=== PATIENT | female | born 1975 | race Caucasian/White ===

== ENCOUNTER 2022-08-11 15:17 | Outpatient (CLI) | payer OTHER, SELFPAY ==
[2022-08-13 17:39] LABS: H pylori, Urea Breath NOT DETECTED (NOT DETECTED)
== END 2022-08-11 15:18 | disposition home or self-care (01) ==
PROVIDERS: PCP Nurse Practitioner Family; Visit Provider Nurse Practitioner Family
DX: R14.2 Eructation (principal); R10.13 Epigastric pain
CPT/HCPCS: 83013

== ENCOUNTER 2025-04-12 11:11 | Emergency (ER) | payer BC, SELFPAY ==
--- OUTSIDE RECORDS SUMMARY | 2024-04-24 11:00 | XMS_ITS ---
Author Organization [facility] Address [address] [address] [place] [address] Care Team Providers Care Muck Farmer Name Role Phone Noemi Ibrahim Unavailable [phone] REASON FOR VISIT Lower abdominal pain, lower back pain, khan when I pee Encounters Encounter Location Date Provider Diagnosis [facility] [place], [place] [address] [place] [address] 04/24/2024 Noemi Ibrahim Plan Of Treatment No Information Progress Notes * CHAU Jo NDOB:[birth year] (49 yo F)Acc No.[id number]:04/24/2024 Progress Note - Acute Patient: Shavonne GARCES Jo Daniel Provider: Gianna Ibrahim MD :1975 A ge:48 Y S ex:Female Date:04/24/2024 External Visit ID:[id number] Address:[address] [facility] [facility] Subjective: * Chief Complaints: * 1 . Lower abdominal pain, lower back pain, kahn when I pee. * Active Problem List E03.9 Acquired hypothyroid ism Modified On:08/15/2023U Status:confirmed F32.89 Other depression Modified On:08/15/2023U Status:confirmed I10 Primary hypertension Modified On:08/15/2023 Status:confirmed J30.2 Seasonal allergies Modified On:08/15/2023 Status:confirmed * Medical History: Objective: * Vitals: Assessment: Plan: * Treatment: * * Electronic signature of Jessa Ibrahim MD on 04/12/2025 at 11:21 AM CDT Sign off status: Pending * Provider: Gianna Ibrahim MD Date: 0 04/24/2024 Generated for Maria Guadalupe ernandez/Akilah/Hadley on: 0 04/12/2025 11:21 AM CDT
--- OUTSIDE RECORDS SUMMARY | 2024-05-14 11:00 | XMS_ITS ---
Author Organization [facility] Address [address] [address] [place] [address] Care Team Providers Care Pile Header Name Role Phone Noemi Ibrahim Unavailable [phone] [place] Unavailable [phone] REASON FOR VISIT Fever, sore throat, kahn when I urinate, lower abdominal pain. Medications Medication SIG (Take, Route, Frequency, Duration) Notes Start Date End Date Status Ondansetron 8 MG 1 tablet on the tong ue and allow to dissolve as needed Orally every 6 hours for 5 days 08/15/2023 Active Pepcid 40 MG 1 tablet at bedtime Orally Once a day for 90 days 08/15/2023 Active Fluticasone Propionate 50 MCG/ACT 1 spray in each nostril Nasally Once a day for 30 08/15/2023 Active Triamcinolone Acetonide 0.1 % 1 application Externally Two times a Week for 90 days 08/15/2023 Active Loratadine 10 MG 1 tablet Orally Once a day for 90 days 08/15/2023 Active Lisinopril 5 MG 1 tablet Orally Once a day for 90 days 08/15/2023 Active Montelukast Sodium 10 MG 1 tablet Orally Once a day for 90 days 08/15/2023 Active buPROPion HCl ER (XL) 150 MG 1 tablet in the morning Orally Once a day for 90 days 08/15/2023 Active Escitalopram Oxalate 20 MG 1 tablet Oral ly Once a day for 90 days 08/15/2023 Active Levothyroxine Sodium 50 MCG 1 tablet in the morning on an empty stomach Orally Once a day for 90 days 08/15/2023 Active Encounters Encounter Location Date Provider Diagnosis [facility] [address] [place] [address] 05/14/2024 Cee Nicholas Plan Of Treatment No Information Progress Notes * Jo RITCHIE NDOB:[birth year] (49 yo F)Acc No.[id number]:05/14/2024 Progress Note - Acute Patient: Jo HAYS N Provider: Alis Nicholas APN :1975 A ge:48 Y S ex:Female Date:05/14/2024 External Visit ID:[id number] Address:[address] [place] [address] [address], [place] [address] Subjective: * Chief Complaints: * 1 . Fever, sore throat, kahn when I urinate, lower abdominal pain.. * Medical History: * Medications: T aking Levothyroxine Sodium 50 MCG Tablet 1 tablet in the morning on an empty stomach Orally Once a day , Taking buPROPion HCl ER (XL) 150 MG Tablet Extended Release 24 Hour 1 tablet in the morning Orally Once a day , Taking Escitalopram Oxalate 20 MG Tablet 1 tablet Orally Once a day , Taking Lisinopril 5 MG Tablet 1 tablet Orally Once a day , Taking Montelukast Sodium 10 MG Tablet 1 tablet Orally Once a day , Taking Ondansetron 8 MG Tablet Disintegrating 1 tablet on the tongue and allow to dissolve as needed Orally every 6 hours , Taking Pepcid 40 MG Tablet 1 tablet at bedtime Orally Once a day , Taking Fluticasone Propionate 50 MCG/ACT Suspension 1 spray in each nostril Nasally Once a day , Taking Triamcinolone Acetonide 0.1 % Cream 1 application Externally Two times a Week , Taking Loratadine 10 MG Tablet 1 tablet Orally Once a day Objective: * Vitals: Assessment: Plan: * Treatment: * * Electronic signature of Alexandria Nicholas APN on 04/12/2025 at 11:20 AM CDT Sign off status: Pending * Provider: Alis Nicholas APN Date: Generated for Maria Guadalupe ernandez/Akilah/Hadley on: 0 04/12/2025 11:20 AM CDT
--- OUTSIDE RECORDS SUMMARY | 2025-04-12 11:21 | XMS_ITS | Encounter Summary ---
Author Organization [facility] Address [address] [place] [address] Care Team Providers Care Header Dock Name Role Phone Noel Perez MD Primary Care Provider [phone] Encounter Details Date Type Department Care Team (Late st Contact Info) Description 06/25/2004 Outpatient Historical [facility] M[facility] and [place] [address] [place] [address] Wm Dotson MD [address] [facility] [address] [place] [address] Social History Tobacco Use Types Packs/Day Years Used Date Smoking Tobacco: Never Assessed Comments Unknown Sex and Gender Information Value Date Recorded Sex Assigned at Not on file Legal 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
--- OUTSIDE RECORDS SUMMARY | 2025-04-12 11:21 | XMS_ITS | Clinical Summary ---
Author Organization [facility] Address [address] [place] [address] Phone Care Team Providers Care Metal Container Maker Name Role Phone Eloise Pruitt APRN, SOLICITOR PATENT Primary Care Provide r Sergio [place] MD Unavailable [phone] Allergies Active Allergy Reactions Criticality Noted Date Comments Atorvastatin Other (see Comments) Low 10/21/2020 Dexlansoprazole Other (see Comments),Shortness of Breath,Unknown High 01/17/2019 Doxycycline Hives,Itching Low 08/20/2018 Fluticasone-Salmeterol Palpitations Low 05/27/2022 Levofloxacin Shortness of Breath High 01/17/2019 Mometasone Furo-Formoterol Fum Other (see Comments) High 01/17/2019 Pravastatin Other (see Comments) Low 10/21/2020 Rosuvastatin Other (see Comments) Low 01/07/2021 Sulfamethoxazole Rash Low 08/09/2022 Sulfamethoxazole-Trimethoprim Rash Medium 2019 Medications ALPRAZolam (XANAX) 0.5 MG Tablet Take 0.5 mg by mouth. 3 Active cetirizine (ZyrTEC) 10 MG Tablet Take 10 mg by mouth. Active Desogestrel-Eth inyl Estradiol 0.15-30 MG-MCG Tablet TAKE 1 ACTIVE TABLET DAILY, SKIPPING PLACEBO TABLETS 8 Active docusate sodium (COLACE) 100 MG Capsule TAKE 1 CAPSULE BY MOUTH TWICE A DAY NEEDED FOR CONSTIPATION 4 Active EPINEPHrine (EPIPEN) 0.3 MG/0.3ML Solution Auto-injector 0.3 mg by Intramuscular route. 3 Active escitalopram (LEXAPRO) 20 MG Tablet Take 10 mg by mouth daily. 3 Active esomeprazole (NexIUM) 40 MG CAPSULE DELAYED RELEASE Take 40 mg by mouth. Active famotidine (PEPCID) 40 MG Tablet Take 40 mg by mouth. 3 Active fluticasone (FLONASE) 50 MCG/ACT Suspension 1 [place] by Nasal route. 2 Active levothyroxine (SYNTHROID) 50 MCG Tablet Take 50 mcg by mouth daily. 3 Active lisinopril (PRINIVIL, ZESTRIL) 5 MG Tablet Take 5 mg by mouth daily. 3 Active montelukast (SINGULAIR) 10 MG Tablet 1 tab(s) orally 30 minutes prior to allergy shots for 30 days Active ondansetron (ZOFRAN-ODT) 4 MG TABLET DISPERSIBLE Take 4 mg by mouth. 3 Active triamcinolone (KENALOG) 0.1 % Cream every 8 (eight) hours. Active valACYclovir (VALTREX) 1 GM Tablet Take 2 tablet (2000 mg total) by mouth every 12 hours x 1 day PRN. Take at the first sign of cold sore. 2 Active ergocalciferol (VITAMIN D) 79470 UNIT Capsule Take 1.25 mg by mouth once a week. 4 Active Ferrous Sulfate (Iron) 325 (65 Fe) MG Tablet Take by mouth. A ctive Multiple Vitamin (MULTI-VITAMIN DAILY PO) Take by mouth. Vitafusion gummie Active Cyanocobalamin (B-12 PO) Take 1,000 mcg by mouth. Active Lactobacillus (PROBIOTIC ACIDOPHILUS PO) Take by mouth. Roland multi strain vaginal probiotic Active Azelastine HCl 137 MCG/SPRAY Solution SPRAY 2 SPRAYS INTO EACH NOSTRIL TWICE A DAY FOR 30 DAYS 4 Active albuterol 108 (90 Base) MCG/ACT Aerosol Solution take 2 Puffs by inhalation. 03/20/202 4 Active budesonide-form oterol fumarate (SYMBICORT) 80-4.5 MCG/ACT Aerosol take 2 Puffs by inhalation. 4 Active buPROPion (WELLBUTRIN) 150 MG XL tablet Take 1 Tablet by mouth daily. 3 Active amoxicillin-cla vulanate (AUGMENTIN) 875-125 MG Tablet Take 1 Tablet by mouth 2 times daily. Active Active Problems Problem Noted Date Diagnosed Date Iron deficiency anemia 09/12/2024 Encounters Date Type Department Care Team Description 01/23/2025 1:15 PM CDT Office Visit [facility] [address] [address] Sergio Colorado MD Iron deficiency anemia secondary to inadequate dietary iron intake (Primary Dx) 01/23/2025 Travel from Last 3 Months Social History Tobacco Use Types Packs/Day Years Used Date Smoking Tobacco: Never Smokeless Tobacco: Never Tobacco Cessation:Counseling Given: Not Answered Alcohol Use Standard Drinks/Week Comments Yes 2 (1 standard drink = 0.6 oz pur e alcohol) 4 times a year Comments Unknown Sex and Gender Information Value Date Recorded Sex Assigned at Not on file 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 Gender Identity Not on file Sexual Orientation Not on file Last Filed Vital Signs Vital Sign Reading Time Taken Comments Blood Pressure 138/84 01/23/2025 1:32 PM CDT Pulse 83 01/23/2025 1:32 PM CDT Temperature 36.9 C (98.5 F) 01/23/2025 1:32 PM CDT Respiratory Rate 18 01/23/2025 1:32 PM CDT Oxygen Saturation 99% 01/23/2025 1:32 PM CDT Inhaled Oxygen Concentration - - Weight 66.6 kg (146 lb 12.8 oz) 01/23/2025 1:32 PM CDT Height 157.5 cm (5' 2) 01/23/2025 1:32 PM CDT Body Mass Index 26.85 01/23/2025 1:32 PM CDT Plan of Treatment Upcoming Encounters Date Type Department Care Team (Late st Contact Info) Description 05/29/2025 1:45 PM CDT Office Visit [facility] [address] [place] [address] Sergio Colorado MD [address] [place] [address] Health Maintenance Due Date Last Done Comments Hepatitis C Virus (HCV) Screening 1975 Pap Smear 1995 Cervical Cancer Screening (CCS) 2004 HPV/Cotest 2004 Cologuard 2019 Immunochemical Fecal Occult Blood 2019 SARS-COV-2 Immunization ( season) 2024 08/12/2021, 10/16/2020, 09/18/2020 Zoster Immunization (1 of 2) 2024 Influenza Immunization (#1) 04/14/202505/14, 05/25/2023, 10/17/2022, Additional history exists Mammogram 11/06/2025 11/06/2024, 10/12, 10/28/2024, Additional history exists Colonoscopy 11/29/2032 11/29/2022 Colorectal Cancer Screening 11/29/2032 Respiratory Syncytial Virus (RSV) Immunization (Adult) (1 - 1-dose 75+ series) 2049 DTaP/Tdap/Td Immunization Discontinued 08/19/2023, TdaP Immunization Completed 08/19/2023, 05/09/2014 Hepatitis B Immunization Completed 024, 07/24/2017, 03/20/2017, Additional history exists Pneumococcal Immunization (50+ years) Completed 03/15/2024, 01/16/2023, 03/08/2021 Pneumococcal Immunization Combined Discontinued 03/15/2024, 01/16/2023, 03/08/2021 Discussion re Starting/Frequency of Mammograms Discontinued 10/28/2024, 09/13/2022, 06/22/2017, Additional history exists Human Papillomavirus (HPV) Immunization Aged Out No longer eligible based on patient's age to complete this topic Meningococcal Immunization (ACWY) Aged Out No longer eligible based on patient's age to complete this topic Rotavirus Immunization Aged Out No lo nger eligible based on patient's age to complete this topic Insurance [facility] Care Teams Metal Container Maker Relationship Specialty Start Date End Date Eloise Pruitt, CORPORATE MEETING PLANNER, SOLICITOR PATENT PCP - General Advanced Practice Nurse 10/03/23 Sergio Colorado MD Consulting Physician Oncology 10/03/23
--- OUTSIDE RECORDS SUMMARY | 2025-04-12 11:21 | XMS_ITS | Encounter Summary ---
Author Organization [facility] Address 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
--- OUTSIDE RECORDS SUMMARY | 2025-04-12 11:21 | XMS_ITS | Encounter Summary ---
Author Organization [facility] Address 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
--- OUTSIDE RECORDS SUMMARY | 2025-04-12 11:21 | XMS_ITS | Clinical Summary ---
Author Organization [facility] Address [address] [place] [address] Phone Care Team Providers Care Plastic Boat Buffer Name Role Phone Noel Perez MD Primary Care Provider [phone] Allergies Active Allergy Reactions Criticality Noted Date Comments Atorvastatin Muscle Pain,Other (S ee Comments) Low 10/21/2020 Cat Dander Itching,Unknown Low 02/17/2025 Clarithromycin Anaphylaxis High 02/17/2025 Clobetasol Anaphylaxis High 03/23/2025 Dexlansoprazole Other (See Comments),Shortness of Breath/Wheezing,Unknown High 01/17/2019 Doxycycline Hives,Itching,Anaphylaxis High 9 Ezetimibe Unknown 10/28/2024 Fluticasone Propion-Salmeterol Palpitations Low 05/27/2022 Latex Rash Low 02/17/2025 Levofloxacin Other (See Comments),Shortness of Breath/Wheezing High 01/17/2019 Mold Shortness of Breath/Wheezing High 02/17/2025 Mometasone-Formoterol Other (See Comments),Dizziness High 01/17/2019 Pravastatin Muscle Pain,Other (S ee Comments) Low 10/21/2020 Rosuvastatin Muscle Pain,Other (S ee Comments) Low 01/07/2021 Sulfa (Sulfonamide Antibiotics) Hives,Rash High 08/09/2022 Sulfamethoxazole-Trimethopri m Rash,Other (See Comments) Medium 10/13/2019 Tree Nut Anaphylaxis High 03/23/2025 Medications ALBUTEROL SULFATE (VENTOLIN HFA INHALATION)Indicat ions:Screening for malignant neoplasm of the cervix,Routine gynecological examination Take by inhalation. Active lisinopril (PRINIVIL) 10 mg tablet Take 10 mg by mouth daily. Active levothyroxine 50 mcg tablet 6 Active valACYclovir (VALTREX) 500 mg tablet TAKE 1 TABLET BY MOUTH TWICE A DAY. 30 Tablet 11 7 Active APRI 0.15-0.03 mg Tablet TAKE 1 ACTIVE TABLET DAILY, SKIPPING PLACEBO TABLETS 84 Tablet 8 Active solifenacin (VESICARE) 10 mg Tablet Take 10 mg by mouth daily. Active fluconazole (DIFLUCAN) 150 mg tablet Take 1 Tablet (150 mg) by mouth every third day for 2 doses. 2 Tablet 5 03/27/20 25 amoxicillin (AMOXIL) 500 mg Tablet Take 1 Tablet (500 mg) by mouth every 12 hours for 5 days. 10 Tablet 5 03/30/20 25 Active Problems No known active problems Encounters Date Type Department Care Team Description 03/25/2025 Telephone [facility] [address] [phone] Shelby Malone NP Abnormal Lab Results 03/24/2025 Results Follow-Up [facility] [address] [address] Janae Lui, ROMEL VAGINOSIS/VAGINITIS PANEL PLUS, POC URINALYSIS DIPSTICK AUTOMATED, POC , URINE, URINE CULTURE 03/23/2025 1:45 PM CDT Office Visit [facility] [address] [phone] [facility] Shelby Malone, YESI Vaginal yeast infection (Primary Dx) 03/18/2025 External Device Data STL ABSTRACTION Provider, Abstract 02/26/2025 External Device Data STL ABSTRACTION Provider, Abstract 02/25/2025 External Device Data STL ABSTRACTION Provider, Abstract 01/28/2025 External Device Data STL ABSTRACTION Provider, Abstract 01/14/2025 External Device Data STL ABSTRACTION Provider, Abstract from Last 3 Months Family History Medical History Relation Name Comments Heart Disease Father Cancer Maternal Grandmother cervica l Cancer Mother Diabetes Mother Heart Disease Mother Other Mother Healthy Son Breast Cancer Neg Hx Relation Name Status Comments Father Maternal Grandmother Mother Alive Son Alive Social History Tobacco Use Types Packs/Day Years Used Date Smoking Tobacco: Never Smokeless Tobacco: Never Tobacco Cessation:Counseling Given: Not Answered Alcohol Use Standard Drinks/Week Comments No 0 (1 standard drink = 0.6 oz pur e alcohol) Comments No Sex and Gender Information Value Date Recorded Sex Assigned at Not on file Legal Sex Female 5:16 AM VISUAL ASSOCIATE Gender Identity Not on file Sexual Orientation Not on file Occupation Industry Job Start Date Job End Date Not on file Not on file Not on file Not on file Last Filed Vital Signs Vital Sign Reading Time Taken Comments Blood Pressure 130/83 03/23/2025 11:59 AM CDT Pulse 78 03/23/2025 11:59 AM CDT Temperature 36.8 C (98.3 F) 03/23/2025 11:59 AM CDT Respiratory Rate 16 03/23/2025 11:59 AM CDT Oxygen Saturation 97% 03/23/2025 11:59 AM CDT Inhaled Oxygen Concentration - - Weight 62.1 kg (137 lb) 03/23/2025 11:59 AM CDT Height 157.5 cm (5' 2) 03/23/2025 11:59 AM CDT Body Mass Index 25.06 03/23/2025 11:59 AM CDT Plan of Treatment Health Maintenance Due Date Last Done Comments Pre-Diabetes and Diabetes Screening 1975 CERVICAL CANCER SCREENING 06/22/2018 PAP SMEAR 06/22/2018 06/22/2017, 10/12, 08/02/2013, Additional history exists FIT-DNA Q 3 years 2019 FIT/FOBT Q 1 year 2019 Flex Sig/CT Colonography Q 5 years 2019 HPV/Cotest (21-29) 06/22/2022 06/22/2017, 0 10/28/2014, 08/02/2013, Additional history exists HPV/Cotest (30-65) 06/22/2022 06/22/2017, 0 10/28/2014, 08/02/2013, Additional history exists COVID-19 Vaccine (2023-2 5 season) 2024 08/12/2021, 10/16/2020, 09/18/2020 ZOSTER VACCINE (1 of 2) 2024 INFLUENZA VACCINE (#1) 2025 05/25/2024, 2014 BREAST CANCER SCREENING 11/06/2025 11/07/19, 11/06/2024, 10/28/2024, Additional history exists COLORECTAL SCREENING 11/29/2032 11/29/2022 Colorectal Cancer Screening 11/29/2032 DTAP/TDAP/TD VACCINES (3 - T d or Tdap) 08/19/2033 08/19/2023, 05/09/2014 HEPATITIS B VACCINES Completed 07/24/2017, 03/20/2017, 01/18/2017 Procedures Procedure Name Priority Date/Time Associated Diagnosis Comments POC URINALYSIS DIPSTICK AUTOMATED Routine 03/23/2025 12:41 PM CDT Vaginal yeast infection POC , URINE Routine 03/23/2025 12:34 PM CDT Vaginal yeast infection URINE CULTURE Routine 03/23/2025 12:12 PM CDT Vaginal yeast infection VAGINOSIS/VAGINITIS PANEL PLUS Routine 03/23/2025 12:12 PM CDT Vaginal yeast infection MAMMO SCREEN BILAT W OR WO CAD Routine 06/22/2017 11:53 AM VISUAL ASSOCIATE Visit for screening mammogram CERV/VAG CYTOPATH, THIN PREP AND HPV W/RFLX GENOTYPES 16, 18/45 Routine 06/22/2017 10:16 AM VISUAL ASSOCIATE Well woman exam with routine gynecological exam Routine cervical smear Special screening examination for human papillomavirus (HPV) from Last 3 Months or Most Recently Relevant to Health Maintenance Results * POC URINALYSIS DIPSTICK AUTOMATED (03/23/2025 12:41 PM CDT) COLOR UA POC Yellow Pale to Dark Yellow [facility] CLARITY UA POC Clear Clear, Other [facility] GLUCOSE UA POC Negative Negative, Normal [facility] BILIRUBIN UA POC Negative Negative [facility] KETONES UA POC Negative Negative [facility] SPECIFIC GRAVITY UA POC 1.010 1.000 - 1.[address] [address] [facility] BLOOD UA POC Negative Negative CHARLES [facility] PH UA POC 6.5 5.0 - 8.0 CHARLES PROCTOR ALTH [facility] PROTEIN UA POC Negative Negative [facility] UROBILINOGEN UA POC 0.2 <2.0 mg/dL [facility] NITRITE UA POC Negative Negative [facility] LEUKOCYTE ESTERASE UA POC Negative Negative [facility] KIT LOT NUMBER POC [id number] [facility] KIT EXP DATE POC 07/10/[address] [facility] Urine 03/23/2025 12:4 1 PM CDT us Shelby Malone CAR SALES ASSOCIATE POINT OF CARE TESTING Final R esult [facility] CLIA# [id number] [place] [address] * POC , URINE (03/23/2025 12:34 PM CDT) HCG QUAL URINE POC Negative Negative, Indeterminate [facility] INTERNAL KIT QC POC Pass Pass [facility] KIT LOT NUMBER POC [id number] [facility] KIT EXP DATE POC 07/10/2026 [facility] Urine 03/23/2025 12:3 4 PM CDT us Shelby Malone CAR SALES ASSOCIATE POINT OF CARE TESTING Final R esult [facility] CLIA# [id number] [place] [address] * VAGINOSIS/VAGINITIS PANEL PLUS (03/23/2025 12:12 PM CDT) BACTERIAL VAGINOSIS NEGATIVE NEGATIVE [facility] DANNA SPECIES NOT DETECTED NOT DETECTED [facility] DANNA GLABRATA NOT DETECTED NOT DETECTED [facility] Comment: Danna species C. albicans, C. tropicalis, C. parapsilosis, and/or C. dubliniensis can be detected, but not differentiated, in the Danna spp. result. TRICHOMONAS VAGINALIS (TV), TMA NOT DETECTED NOT DETECTED [facility] CHLAMYDIA TRACHOMATIS RNA, TMA, UROGENITAL NOT DETECTED NOT DETECTED [facility] NEISSERIA GONORRHOEAE RNA, TMA, UROGENITAL NOT DETECTED NOT DETECTED [facility] Comment: For additional information, please refer to https://education.Booking Angel/faq/RCV082 (This link is being provided for information/ educational purposes only.) Test Performed at: [facility] [address] [place] [address] Jose M Choe MD Genital SPECIMEN FROM VAGINA / Unknown 03/23/2025 12:12 PM CDT 03/24/2025 6:04 AM CDT Shelby Malone NP MICROBIOLOGY - GENERAL ORDERA BLES Final Result [facility] [phone] [facility] [address] [place] [address] * (ABNORMAL) URINE CULTURE (03/23/2025 12:12 PM CDT) Pathologist [facility] URINE CULTURE SEE NOTE(A) [facility]Percy Fallon Comment: CULTURE, URINE, ROUTINE Micro Number: [id number] Test Status: Final Specimen Source: Urine, clean catch Specimen Quality: Adequate Result: Greater than 100,000 CFU/mL of Group B Streptococcus isolated Beta-hemolytic streptococci are predictably susceptible to Penicillin and other beta-lactams. Susceptibility testing not routinely performed. Please contact the laboratory within 3 days if susceptibility testing is desired. Comment: Erythromycin and clindamycin are not recommended for treatment of urinary tract infections, but clindamycin may be useful for treatment of rectovaginal colonization or infection. Any amount of group B Streptococcus in urine specimens obtained from females is a marker of genital tract colonization. If this patient is , please refer to ACOG guidelines for appropriate screening and management of women. COMMENT: Additional non-predominating organism(s) isolated. These organisms, commonly found on external and internal genitalia, are considered colonizers. No further testing performed. Test Performed at: [facility] [place] [address] [place] [address] [facility] Urine URINE SPECIMEN OBTAINED BY CLEAN CATCH PROCEDURE / Unknown 03/23/2025 12:12 PM CDT 03/23/2025 10:58 PM CDT Shelby Malone NP MICROBIOLOGY - GENERAL ORDERA BLES Final Result [facility] [phone] [place] [address] [place] [address] * MAMMO SCREEN BILAT W OR WO CAD (06/22/2017 11:53 AM VISUAL ASSOCIATE) Anatomical Region Laterality Modality Breast Bilateral Mammography Narrative 06/22/2017 2:08 PM VISUAL ASSOCIATE Bilateral digital screening mammogram with computer assisted diagnosis History: Annual screening exam. Findings: A bilateral screening mammogram was performed. Comparison is made to : 03/25/2016, 10/28/2014, and 08/02/2013 There are scattered fibroglandular densities. No new masses, suspicious calcifications, or areas of asymmetry or distortion are identified. CAD was utilized. Impression: Negative screening mammogram. Recommendation: Routine annual follow-up Overall Assessment: Birads Category 1: Negative Anushka Saez NP MAMMO ORDERABLES Final Resu lt * CERV/VAG CYTOPATH, THIN PREP AND HPV W/RFLX GENOTYPES 16, 18/45 (CP) (06/22/2017 10:16 AM VISUAL ASSOCIATE) CLINICAL INFORMATION SEE COMMENT 06/29/2017 11:50 AM VISUAL ASSOCIATE [facility] Comment:Information not prov ided LAST MENSTRUAL PERIOD SEE COMMENT 06/29/2017 11:50 AM VISUAL ASSOCIATE [facility] Comment:INFORMATION NOT PROV IDED PREV PAP: NIL 06/29/2017 11:50 AM VISUAL ASSOCIATE [facility] PREV BX: SEE COMMENT 06/29/2017 11:50 AM VISUAL ASSOCIATE [facility] Comment:INFORMATION NOT PROV IDED SOURCE Endocervix 06/29/2017 11:50 AM VISUAL ASSOCIATE [facility] ADEQUACY: SEE COMMENT 06/29/2017 11:50 AM VISUAL ASSOCIATE [facility] Comment: Satisfactory for evaluation. Endocervical/transformation zone component present. Age and/or menstrual status not provided PAP INTERP SEE COMMENT 06/29/2017 11:50 AM VISUAL ASSOCIATE [facility] Comment:Negative for intraep ithelial lesion or malignancy. COMMENT SEE COMMENT 06/29/2017 11:50 AM VISUAL ASSOCIATE [facility] Comment: This Pap test has been evaluated with computer assisted technology. LIVESTOCK PRODUCER: SEE COMMENT 2016 11:50 AM VISUAL ASSOCIATE [facility] Comment: BES, CT(ASCP) CT screening location: [place] [address] [address] [place] [address] HPV E6/E7 Not Detected Not Detected 06/29/2017 11:50 AM VISUAL ASSOCIATE [facility] Comment: This test was performed using the APTIMA HPV Assay ([employer] This assay detects E6/E7 viral messenger RNA (mRNA) from 14 high-risk HPV types (16,18,31,33,35,39,45,51,52,56,58,59,66,68). Genital SWAB OF ENDOCERVIX / Unknown Collection / Unknown 06/22/2017 10:16 AM VISUAL ASSOCIATE 06/22/2017 12:42 PM VISUAL ASSOCIATE Narrative [facility] - 06/29/2017 11:50 AM VISUAL ASSOCIATE Performing Organization Information: Site ID: Name: [facility] Address: [facility] [place] [address] Director: Jose M Choe MD us Anushka Saez NP PATHOLOGY/CYTOLOGY ORDERABL ES Final Result [facility] from Last 3 Months or Most Recently Relevant to Health Maintenance Insurance [facility] BLUE ACCESS CHOICE RX [employer] Care Teams Plastic Boat Buffer Relationship Specialty Start Date End Date Noel Perez MD [address] [place] [address] [address] [place] [id number] PCP - General Internal Medicine 06/06/12
--- OUTSIDE RECORDS SUMMARY | 2025-04-12 11:21 | XMS_ITS | Clinical Summary ---
Author Organization [facility] Address [address] [place] [address] Care Team Providers Care Certified Control Systems Technician Name Role Phone Sinai Mcgregor MD Primary Care Provider [phone] Source Comments [facility],non-owned Affiliates and Associated Physician Practices is amultiple site organization consisting of ambulatory clinics and hospital sitesin [place], [place], [place] and [place]. This disclosure is being madepursuant to the Care Everywhere program and may not contain all information available regarding this patient. Last updated 18.[facility] [employer] Allergies Active Allergy Reactions Criticality Noted Date Comments Advair Diskus Palpitations 04/11/2023 Atorvastatin Myalgias 04/11/2023 Dexlansoprazole Shortness of Breath High 04/11/2023 Doxycycline Itching 04/11/2023 Dulera Dizziness 04/11/2023 Levofloxacin Shortness of Breath High 04/11/2023 Pravastatin Myalgias 04/11/2023 Rosuvastatin Myalgias 04/11/2023 Sulfamethoxazole W-Trimethoprim Rash Medium 03/15 Medications * Be aware that medications may not be up to date on this document. Alwaysverify current medications with the patient. Fluticasone Propionate (Xhance) 93 MCG/ACT EXHU [place] 2 sprays into the nose 2 times daily Active amoxicillin (Amoxil) 875 MG tablet Take 1 (one) tablet by mouth every 12 hours Active desogestrel-eth inyl estradiol (Apri) 0.15-30 MG-MCG tablet Take 1 (one) tablet by mouth once daily Has stopped taking 11/2024 Active Docusate Sodium (DSS) 100 MG Take 1 capsule by mouth as needed 4 Active EPINEPHrine (Auvi-Q) 0.3 MG/0.3ML auto-injector pen Inject 0.3 mL into muscle once as needed Active levothyroxine (Synthroid) 50 MCG tablet Take 1 (one) tablet by mouth once daily 3 Active buPROPion XL 24hr (Wellbutrin-XL) 150 MG tablet Take 1 (one) tablet by mouth once daily 3 Active lisinopril (Prinivil; Zestril) 5 MG tablet Take 1 (one) tablet by mouth once daily 3 Active meclizine (Antivert) 12.5 MG tablet Take 1 (one) tablet by mouth 3 times daily as needed 5 Active ALPRAZolam (Xanax) 0.5 MG tablet Take 1 (one) tablet by mouth every 8 hours as needed 4 Active predniSONE (Deltasone) 20 MG tablet Take 1 (one) tablet by mouth once 5 Active ferrous sulfate 325 (65 FE) MG tablet Take 1 (one) tablet by mouth once daily Active cetirizine (ZyrTEC) 10 MG tablet Take 1 (one) tablet by mouth once daily Active triamcinolone acetonide (Kenalog) 0.1 % cream Apply to affected area every 8 hours 4 Active budesonide-form oterol (Symbicort) 80-4.5 MCG/ACT inhaler Inhale 2 (two) puffs by mouth 2 times daily 4 Active Other Inhale by mouth as needed Active nystatin/triamc inolone (Mycolog) 238209-3.1 UNIT/GM-% ointmentIndicat ions:Lichen sclerosus Use to vulvar skin twice a week 30 g 1 5 Active albuterol HFA (Proventil; Ventolin; Proair) 108 (90 Base) MCG/ACT inhaler INHALE 2 PUFFS INTO THE LUNGS EVERY 6 HOURS NEEDED FOR WHEEZE Active baclofen (Lioresal) 10 MG tablet Take 1 (one) tablet by mouth 2 times daily as needed 5 Active Bempedoic Acid (Nexletol) 180 MG TABS Take 180 mg by mouth once daily 5 Active budesonide (Pulmicort) 1 MG/2ML nebulizer suspension EMPTY ONE VIAL INTO IDS, ADD SALINE PACKET AND DISTILLED WATER, THEN IRRIGATE ONCE DAILY 5 Active Active Problems Problem Noted Date Diagnosed Date Depression 12/18/2024 Iron deficiency anemia 09/12/2024 Dysphagia 08/09/2024 Vitamin D deficiency 09/03/2023 Allergic rhinitis due to animal hair and dander 08/11/2022 Allergic rhinitis due to pollen 08/11/2022 Chronic allergic conjunctivitis 08/11/2022 Chronic cough 08/11/2022 Gastro-esophageal reflux disease without esophag itis 08/11/2022 Hypertrophy of nasal turbinates 08/11/2022 Fatigue 05/16/2022 Vertigo 06/29/2021 Seasonal allergies 04/15/2020 Overview (12/18/2024): Mold Anxiety disorder 05/14/2019 Chronic rhinitis 09/28/2018 Dyslipidemia 08/21/2018 Herpes labialis 08/21/2018 Moderate episode of recurrent major depressive d isorder 08/21/2018 Moderate persistent asthma without complication 08/21/2018 Other specified hypothyroidism 08/21/2018 Primary hypertension 08/21/2018 Resolved Problems Problem Noted Date Diagnosed Date Resolved Date Constipation 11/02/2022 01/15/2025 Overview (12/18/2024): Added automatically from request for surgery [id number] Encounters Date Type Department Care Team Description 03/20/2025 2:00 PM CDT [facility] - BOOK STORE ASSOCIATE [address] [place] [phone] Charissa Nielsen, LOSS PREVENTION RESEARCH ENGINEER-LECTURER IN COMPUTER SCIENCE Lichen sclerosus (Primary Dx); PFD (pelvic floor dysfunction); Danna glabrata infection 03/20/2025 Travel from Last 3 Months Family History Medical History Relation Name Comments Asthma Brother 1 CAD (Coronary Artery Disease) Brother 1 Hyperlipidemia Brother 1 Depression Brother 3 CAD (Coronary Artery Disease) Brother 4 Asthma Father Hyperlipidemia Father Anxiety Disorder Maternal Grandmother Cancer Maternal Grandmother Cancer - Other Maternal Grandmother vulva r cancer Anxiety Disorder Mother Asthma Mother Cancer - Other Mother vulvar Depression Mother Diabetes - Type 2 Mother Hyperlipidemia Mother Thyroid Disease Mother Anxiety Disorder Sister Hypertension Sister Relation Name Status Comments Brother 1 Alive Brother 2 Alive Brother 3 Brother 4 Brother 5 Father Maternal Grandfather Maternal Grandmother Mother Paternal Grandfather Paternal Grandmother Sister Alive Social History Tobacco Use Types Packs/Day Years Used Date Smoking Tobacco: Never Smokeless Tobacco: Never Tobacco Cessation:Counseling Given: Not Answered Alcohol Use Standard Drinks/Week Comments Yes 0 (1 standard drink = 0.6 oz pur e alcohol) 4 times yearly PHQ-2 Answer Date Recorded Patient Health Questionnaire-2 Score 1 12/18/2024 Comments No Sex and Gender Information Value Date Recorded Sex Assigned at Not on file Legal Sex Female 4:27 AM CORRECTIONAL OFFICER CAPTAIN Gender Identity Not on file Sexual Orientation Not on file Last Filed Vital Signs Vital Sign Reading Time Taken Comments Blood Pressure 120/76 03/20/2025 2:06 PM CDT Pulse 112 12/18/2024 8:55 AM CDT Temperature 37.1 C (98.7 F) 04/11/2023 8:32 AM CDT Respiratory Rate 16 04/11/2023 8:32 AM CDT Oxygen Saturation 95% 12/18/2024 8:55 AM CDT Inhaled Oxygen Concentration - - Weight 64.7 kg (142 lb 9.6 oz) 03/20/2025 2:06 P M CDT Height 157.5 cm (5' 2) 03/20/2025 2:06 PM CDT Body Mass Index 26.08 03/20/2025 2:06 PM CDT Plan of Treatment Upcoming Encounters Date Type Department Care Team (Late st Contact Info) Description 09/29/2025 2:00 PM CORRECTIONAL OFFICER CAPTAIN Office Visit [facility] - BOOK STORE ASSOCIATE [address] [place] [address] Charissa Nielsen, LOSS PREVENTION RESEARCH ENGINEER-LECTURER IN COMPUTER SCIENCE [address] [address] Health Maintenance Due Date Last Done Comments COLOGUARD (AGES 45-75) - COLON CA SCREENING 1974 CT COLONOGRAPHY - COLON CA SCREENING 1974 FIT - COLON CA SCREENING 1974 FLEX SIG - COLON CA SCREENING 1974 HIV SCREENING 1989 DTAP/TDAP/TD VACCINES (1 - Tdap) 1993 HEPATITIS B VACCINE (1 of 3 - 19+ 3-dose series) 1993 PNEUMOCOCCAL VACCINE 50+ (1 of 2 - PCV) 1993 PAP SMEAR 06/22/2020 06/22/2017 COVID-19 VACCINE ( - season) 2024 08/12/2021, 10/16/2020, 09/18/2020 ZOSTER VACCINE (1 of 2) 2024 SCREENING FOR DIABETES 12/18/2024 INFLUENZA VACCINE (#1) 2025 , 05/25/2023, 10/17/2022, Additional history exists MAMMOGRAM 11/06/2026 11/06/2024, 10/12, 10/28/2024, Additional history exists LIPID TESTING 02/20/2030 02/20/2025, 01/13, 02/04/2025 COLON MONITORING 11/29/2032 11/29/2022 COLONOSCOPY - COLON CA SCREENING 11/29/2032 11/29/2022 Colorectal Cancer Screening 11/29/2032 HEPATITIS C SCREENING Completed 08/03/2017 DEPRESSION SCREENING Completed 12/18/2024 HIB VACCINE Aged Out No longer eligi ble based on patient's age to complete this topic HPV VACCINE Aged Out No longer eligi ble based on patient's age to complete this topic MENINGOCOCCAL (Group B) VACCINE SHARED DECISION-MAKING Aged Out No longer eligible based on patient's age to complete this topic MENINGOCOCCAL GROUPS A/C/Y/W VACCINE Aged Out No longer eligible based on patient's age to complete this topic Insurance [facility] THIRD CONSTITUTION PARTY LIABILITY [employer] Liability Care Teams Certified Control Systems Technician Relationship Specialty Start Date End Date Sinai Mcgregor MD [address] [place] [address] PCP - General Internal Medicine 03/20/25
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
--- OUTSIDE RECORDS SUMMARY | 2025-04-12 11:21 | XMS_ITS | Encounter Summary ---
Author Organization [facility] Address [address] [place] [address] Care Team Providers Care Design Studio Consultant Name Role Phone Noel Perez MD Primary Care Provider [phone] Encounter Details Date Type Department Care Team (Late st Contact Info) Description 11/19/1999 Outpatient Historical [facility] Deborah Hamm Social History Tobacco Use Types Packs/Day Years Used Date Smoking Tobacco: Never Assessed Comments Unknown Sex and Gender Information Value Date Recorded Sex Assigned at Not on file Legal Sex Female 5:16 AM MEDICAL ASST Gender Identity Not on file Sexual Orientation Not on file documented as of this encounter Plan of Treatment Not on file documented as of this encounter Visit Diagnoses Not on filedocumented in this encounter Care Teams Design Studio Consultant Relationship Specialty Start Date End Date Noel Perez MD [address] [place] [address] [address] [place] [address] PCP - General Internal Medicine 06/06/12 documented as of this encounter
--- OUTSIDE RECORDS SUMMARY | 2025-04-12 11:21 | XMS_ITS | Encounter Summary ---
Author Organization [facility] Address [address] [place] [address] Care Team Providers Care Bonding Molder Name Role Phone Noel Perez MD Primary Care Provider [phone] Encounter Details Date Type Department Care Team (Latest Contact Info) Description 05/04/2004 Outpatient Historical [facility] Radha Rob MD [address] [place] [id number] ABNORM NOS-ANTEPAR (Primary Dx) Social History Tobacco Use Types Packs/Day Years Used Date Smoking Tobacco: Never Assessed Comments Unknown Sex and Gender Information Value Date Recorded Sex Assigned at Not on file Legal Sex Female 5:16 AM SPARE HAND Gender Identity Not on file Sexual Orientation Not on file documented as of this encounter Plan of Treatment Not on file documented as of this encounter Visit Diagnoses Diagnosis Unspecified abnormality affecting management of mother, antepartum condition or complication- Primary documented in this encounter Care Teams Bonding Molder Relationship Specialty Start Date End Date Noel Perez MD [address] [place] [address] [address] [place] [id number] PCP - General Internal Medicine 06/06/12 documented as of this encounter
--- OUTSIDE RECORDS SUMMARY | 2025-04-12 11:21 | XMS_ITS | Patient Health Record ---
Author Organization [facility] [place] ([address]) Address [address] [place] [address] Care Team Providers Care Associate Director Of Sales Name Role Phone Eloise Ford Primary Care Provider UnavailConor Slade Unavailable [phone] Choco Rosa Unavailable [phone] Janey Antonio Unavailable [phone] Simi Carrera Unavailable [phone] Allergies Allergen (clinical drug ingredient) Drug/Non Drug Allergy documented on EMR Reaction Allergy Type Onset Date Status dexlansoprazole Dexilant SOB, Fatigue Drug Allergy Active doxycycline Doxycycline Hives Drug Allergy Act norm formoterol / mometasone Dulera Dizziness, Chest Pressure Drug Allergy Active Levaquin SOB,Fatigue Drug Allergy Activ e Sulfamethoxazole Rash Drug Allergy Active atorvastatin Atorvastatin Myalgias Drug Allergy A ctive pravastatin Pravastatin Myalgias Drug Allergy Act norm rosuvastatin Rosuvastatin myalgias Drug Allergy A ctive Results Component Value Reference Range Notes STREPTOCOCCUS PNEUMONIAE AB (IGG) (23 SEROTYPES) Reviewed date:11/04/2024 07:53:19 AM Interpretation:Abnormal Performing Lab:[facility], [facility],, [address] [place], [address] Chela Alonzo MD,PhD,BEN Notes/Report: FASTING: NO FASTING:NO NON-FASTING SEROTYPE 1 (1) 1.1 SEROTYPE 2 (2) 0.5 SEROTYPE 3 (3) <0.3 SEROTYPE 4 (4) 0.4 SEROTYPE 5 (5) <0.3 SEROTYPE 8 (8) 4.8 SEROTYPE 9 (9N) 0.8 SEROTYPE 12 (12F) <0.3 SEROTYPE 14 (14) 20.8 SEROTYPE 17 (17F) 2.4 SEROTYPE 19 (19F) 2.1 SEROTYPE 20 (20) 2.0 SEROTYPE 22 (22F) 2.9 SEROTYPE 23 (23F) 1.5 SEROTYPE 26 (6B) 3.9 SEROTYPE 34 (10A) 14.8 SEROTYPE 43 (11A) 0.7 SEROTYPE 51 (7F) <0.3 SEROTYPE 54 (15B) 3.9 SEROTYPE 56 (18C) <0.3 SEROTYPE 57 (19A) 3.8 SEROTYPE 68 (9V) 0.8 SEROTYPE 70 (33F) 0.4 Serologic correlates of protection against pneumococcal disease have not been rigorously established for all patient populations. Published data and expert consensus (including WHO) suggest protection from invasive disease usually occurs at levels >or =0.3-0.50 mcg/mL for healthy children receiving pneumococcal conjugate vaccines. Higher titers may be necessary to protect from non-invasive infection (e.g., pneumonia, otitis, sinusitis). Expert opinion suggests that a cut-off of >= 1.3 mcg/mL may be a more relevant value to assess antibody responses after pneumococcal polysaccharide vaccines or for immunocompromised patients. In addition to antibody quantity, protection also depends on antibody avidity and opsonophagocytic activity. Some experts consider that post-vaccination (4-6 weeks) IgG seroconversion and/or 2- to 4-fold rise in IgG titers for >50% to 70% of vaccine serotypes demonstrates a normal post-vaccine serologic response. Persons with high initial serotype-specific titers may have less robust responses. [facility] uses a multi-analyte immunodetection (MAID) method. The method employs the AngelList flow cytometric system which measures multiple analytes simultaneously. The FDA standard reference serum 89-S is used as the calibration standard. Results are reported in mcg/mL. This assay detects all of the 23 of the serotypes in the 23-valent polysaccharide vaccine and 12 of the 13 serotypes in the 13-valent conjugate vaccine. This test was developed and its analytical performance characteristics have been determined by [facility]. It has not been cleared or approved by FDA. This assay has been validated pursuant to the CLIA regulations and used for clinical purposes. For additional information, please refer to http://education.Best Five Reviewed .Winster/faq/AGQ348 (This link is being provided for informational/ educational purposes only.) STREPTOCOCCUS PNEUMONIAE AB (IGG) (23 SEROTYPES) Reviewed date:03/28/2025 09:20:01 AM Interpretation:Abnormal Performing Lab:E[facility], [facility],, [address] [place], [address] Chela Alonzo MD,PhD,BEN Notes/Report: NON-FASTING SEROTYPE 1 (1) 1.7 SEROTYPE 2 (2) 0.7 SEROTYPE 3 (3) <0.3 SEROTYPE 4 (4) 0.5 SEROTYPE 5 (5) <0.3 SEROTYPE 8 (8) 7.5 SEROTYPE 9 (9N) 1.3 SEROTYPE 12 (12F) <0.3 SEROTYPE 14 (14) 16.1 SEROTYPE 17 (17F) 4.0 SEROTYPE 19 (19F) 2.7 SEROTYPE 20 (20) 2.6 SEROTYPE 22 (22F) 4.0 SEROTYPE 23 (23F) 2.0 SEROTYPE 26 (6B) 6.3 SEROTYPE 34 (10A) 19.9 SEROTYPE 43 (11A) 0.9 SEROTYPE 51 (7F) <0.3 SEROTYPE 54 (15B) 4.7 SEROTYPE 56 (18C) 0.4 SEROTYPE 57 (19A) 9.7 SEROTYPE 68 (9V) 1.0 SEROTYPE 70 (33F) 0.5 Serologic correlates of protection against pneumococcal disease have not been rigorously established for all patient populations. Published data and expert consensus (including WHO) suggest protection from invasive disease usually occurs at levels >or =0.3-0.50 mcg/mL for healthy children receiving pneumococcal conjugate vaccines. Higher titers may be necessary to protect from non-invasive infection (e.g., pneumonia, otitis, sinusitis). Expert opinion suggests that a cut-off of >= 1.3 mcg/mL may be a more relevant value to assess antibody responses after pneumococcal polysaccharide vaccines or for immunocompromised patients. In addition to antibody quantity, protection also depends on antibody avidity and opsonophagocytic activity. Some experts consider that post-vaccination (4-6 weeks) IgG seroconversion and/or 2- to 4-fold rise in IgG titers for >50% to 70% of vaccine serotypes demonstrates a normal post-vaccine serologic response. Persons with high initial serotype-specific titers may have less robust responses. [employer] uses a multi-analyte immunodetection (MAID) method. The method employs the AngelList flow cytometric system which measures multiple analytes simultaneously. The FDA standard reference serum 89-S is used as the calibration standard. Results are reported in mcg/mL. This assay detects all of the 23 of the serotypes in the 23-valent polysaccharide vaccine and 12 of the 13 serotypes in the 13-valent conjugate vaccine. This test was developed and its analytical performance characteristics have been determined by [facility]. It has not been cleared or approved by FDA. This assay has been validated pursuant to the CLIA regulations and used for clinical purposes. For additional information, please refer to http://education.PANOSOL/faq/KYT210 (This link is being provided for informational/ educational purposes only.) Spirometry Reviewed date:03/19/2025 03:06:09 PM Interpretation:Abnormal - FVL Performing Lab: Notes/Report: Abnormal - FVL SpiroPreBronchodilator_FVC 4.14 SpiroPostBronchodilator_FEF2 5_ 75 0 SpiroPreBronchodilator_FEF25 _7 5 4.49 SpiroPreBronchodilator_FEV1 3.59 SpiroPrecentPredictionPost_F EF 25_75 0 SpiroPrecentPredictionPost_F EV 1 0 SpiroPrecentPredictionPost_F EV 1_OVER_FVC 0 SpiroPrecentPredictionPost_FVC 0 SpiroPrecentPredictionPre_FE F2 5_75 159.8 SpiroPrecentPredictionPre_FEV1 141.9 SpiroPrecentPredictionPre_FE V1 _OVER_FVC 105.7 SpiroPrecentPredictionPre_FVC 135.3 SpiroPredicted_FEF25_75 2.81 SpiroPreBronchodilator_FEV1_ OV ER_FVC 86.86 SpiroPreBronchodilator_PEF 6.32 SpiroPostBronchodilator_FVC 0 SpiroPostBronchodilator_FEV1 0 SpiroPostBronchodilator_FEV1 _O VER_FVC 0 SpiroPostBronchodilator_PEF 0 SpiroPredicted_FVC 3.06 SpiroPredicted_FEV1 2.53 SpiroPredicted_FEV1_OVER_FVC 82.17 SpiroPredicted_PEF 5.73 Reason For Referral No Information Medications Medication SIG (Take, Route, Frequency, Duration) Notes Start Date End Date Status AUVI -Q 0.3 mg as directed intramuscularly once; Duration: 30 day(s) Active Lisinopril 5 MG Acti ve Apri 0.15-30 MG-MCG 1 tab(s) orally once a day Not-Taking SIT (TRADITIONAL) variable per schedule per schedule; Duration: 999 days Active Auvi-Q 0.3 MG/0.3ML as directed intramuscularly once; Duration: 30 day(s) Active Loratadine 10 MG 1 tab(s) orally once a day Not-Taking MONTELUKAST SODIUM 10 mg 1 tab(s) orally 30 minutes prior to allergy shots Active Ondansetron HCl 4 MG 1 tab(s) orally every 8 hours As needed Active CETIRIZINE HYDROCHLORIDE 10 mg 1 tab(s) orally 30 minutes before SCIT Active Famotidine 40 MG 1 tab(s) orally once a day (at bedtime) Active Xhance 93 MCG/ACT 2 sprays (1 spray in each nostril) Nasally Twice a day Not-Taking Triamcinolone Acetonide 0.1 % 1 kelly applied topically 3 times a day Active Azelastine HCl 137 MCG/SPRAY 2 sprays in each nostril Nasally Twice a day; Duration: 30 days Active Azelastine HCl 137 MCG/SPRAY 2 spray(s) intranasally 2 times a day; Duration: 30 day(s) Active Montelukast Sodium 10 MG 1 tab(s) orally 30 minutes prior to allergy shots Active Cetirizine HCl 10 MG 1 tab(s) orally 30 minutes before SCIT Active Breo Ellipta 100 MCG-25 MCG/INH INHALE 1 PUFF DAILY; Duration: 30 *Please review and pick correct strength-formul ation from [employer] options. If intended option is not shown, discontinue and re-order from Quick Search* Not-Taking Levothyroxine Sodium 50 MCG 1 tab(s) orally once a day Active ALPRAZolam 0.5 MG 1 tab(s) orally 3 times a day Active LEVALBUTEROL TARTRATE HFA 45 mcg/inh 2 puff(s) inhaled every 4-6 hours as needed, per asthma action plan; Duration: 30 day(s) Not-Taking Xhance 93 MCG/ACT 2 sprays (1 spray in each nostril) Nasally Twice a day; Duration: 30 days Active ALPRAZOLAM 0.5 mg 1 tab(s) orally 3 times a day Not-Taking Montelukast Sodium 10 MG 1 tab(s) orally 30 minutes prior to allergy shots; Duration: 30 days Not-Taking ONDANSETRON 4 mg 1 tab(s) orally every 8 hours Not-Taking Amoxicillin-Pot Clavulanate 500-125 MG as directed orally every 8 hours; Duration: 7 days 4 Not-Taking BUSPIRONE 7.5 mg 1 tab(s) orally 2 times a day Not-Taking Breo Ellipta 100 MCG-25 MCG/INH 1 PUFF(S) INHALED ONCE A DAY; Duration: 90 DAYS *Please review and pick correct strength-formul ation from [employer] options. If intended option is not shown, discontinue and re-order from Quick Search* Not-Taking LEVOTHYROXINE 50 mcg (0.05 mg) 1 tab(s) orally once a day Not-Taking diphenhydrAMINE HCl (Sleep) 25 MG 1 tab(s) orally PRN Not-Jaylen ing LISINOPRIL 5 mg Not- Taking Symbicort 160-4.5 MCG/ACT as directed Inhalation Active ESCITALOPRAM 10 mg 1 tab(s) orally once a day Not-Taking Triamcinolone Acetonide 0.1 % 1 kelly applied topically after shots; Duration: 5 days 2 Not-Taking Tirzepatide 2.5 MG/0.5ML as directed Subcutaneous Not-Taking Levalbuterol Tartrate 45 MCG/ACT INHALE 2 PUFFS EVERY 6 HOURS NEEDED; Duration: 25 Active methylPREDNISolone 4 MG Oral; Duration: 6 Days Active BREO ELLIPTA 100 mcg-25 mcg/inh 1 puff(s) inhaled once a day; Duration: 90 days Not-Taking APRI 0.15 mg-0.03 mg 1 tab(s) orally onc e a day Not-Taking AZELASTINE NASAL 137 mcg/inh 2 spray(s) intranasally 2 times a day; Duration: 30 days Not-Taking Escitalopram Oxalate 10 MG 1 tab(s) orally once a day Not-Taking BUDESONIDE-FORMOTEROL FUMARATE DIHYDRATE 80 MCG-4.5 MCG/INH 2 PUFF(S) INHALED 2 TIMES A DAY; Duration: 30 DAYS *Please review for potential replacement for e-prescription and drug interaction check* 4 Not-Taking Budesonide-Formoterol Fumarate 80-4.5 MCG/ACT INHALE 2 PUFFS INTO THE LUNGS TWICE A DAY; Duration: 90 Active busPIRone HCl 7.5 MG 1 tab(s) orally 2 times a day Active FAMOTIDINE 40 mg 1 tab(s) orally once a day (at bedtime) Active Immunizations Vaccine Route Administration Date Status Comme nts COVID-19 (Moderna) Unknown 10/16/2020 Administered NOC Pneumovax 23 Unknown 03/08/2021 Administered COVID-19 (Moderna) Unknown 09/18/2020 Administered Social History Tobacco Use: Social History Observation Description Date Details (start date - stop date) Never Smoker NA - NA Sex Assigned At : Social History Observation Description Sex Assigned At Female Tobacco Control (Standard) Question Answer Notes Tobacco use: Nonsmoker AUDIT-C (Standard) Question Answer Notes Did you have a drink contain ing alcohol in the past year? Yes How often did you have a dri nk containing alcohol in the past year? Monthly or less (1 point) How many drinks did you have on a typical day when you were drinking in the past year? 1 or 2 drinks (0 point) How often did you have six o r more drinks on one occasion in the past year? Never (0 point) Points 1 Interpretation Negative Problems Problem Type SNOMED Code ICD Code Onset Dates Problem Status W/U Status Risk Notes Problem Anxiety disorder (555339954) Anxiety disorder, unspecified (F41.9) Active confirmed Problem Chronic allergic conjunctivitis (30533296) Other chronic allergic conjunctivitis (H10.45) Active confirmed Problem Essential hypertension (68475851) Essential (primary) hypertension (I10) Active confirmed Problem Allergic rhinitis caused by pollen (disorder) (73844116) Allergic rhinitis due to pollen (J30.1) Active confirmed Problem Allergic rhinitis caused by animal hair and dander (649864545960812) Allergic rhinitis due to animal (cat) (dog) hair and dander (J30.81) Active confirmed Problem Allergic rhinitis (20429932) Other allergic rhinitis (J30.89) Active confirmed Problem Chronic rhinitis (37812752) Chronic rhinitis (J31.0) Active confirmed Problem Chronic sinusitis (71793705) Chronic sinusitis, unspecified (J32.9) Active confirmed Problem Hypertrophy of nasal turbinates (16033950) Hypertrophy of nasal turbinates (J34.3) Active confirmed Problem Gastro-esophageal reflux disease without esophagitis (987742580) Gastro-esophageal reflux disease without esophagitis (K21.9) Active confirmed Problem Allergic rhinitis caused by pollen (disorder) (39723461) Allergic rhinitis due to pollen (J30.1) Active confirmed Problem Allergic rhinitis caused by animal hair and dander (891413466226280) Allergic rhinitis due to animal (cat) (dog) hair and dander (J30.81) Active confirmed Problem Allergic rhinitis (34384750) Other allergic rhinitis (J30.89) Active confirmed Problem Chronic allergic conjunctivitis (92755674) Other chronic allergic conjunctivitis (H10.45) Active confirmed Problem Acute cough (3404549489201954 04) Acute cough (R05.1) Active confirmed Problem Chronic cough (19676166) Chronic cough (R05.3) Active confirmed Vital Signs Respiratory Rate 17 /min 10/30/2024 Oximetry 99 % 03/19/2025 Blood pressure diastolic 87 mm Hg 03/19/2025 Height 62 in 03/19/2025 Blood pressure systolic 136 mm Hg 03/19/2025 Weight 142 lbs 03/19/2025 BMI 25.97 kg/m2 03/19/2025 Encounters Encounter Location Date [facility] [address] [facility]/20/20[facility] Choco Rosa Allergic rhinitis du e to pollen J30.1 ; Other allergic rhinitis J30.89 ; Allergic rhinitis due to animal (cat) (dog) hair and dander J30.81 and Other chronic allergic conjunctivitis H10.[address] [facility] [address] 02/13/2025 Choco Rosa Allergic rhinitis du e to pollen J30.1 ; Other allergic rhinitis J30.89 ; Allergic rhinitis due to animal (cat) (dog) hair and dander J30.81 and Other chronic allergic conjunctivitis H10.45 [facility] [address] [place] [address] 02/05/2025 Choco Rosa Allergic rhinitis du e to pollen J30.1 ; Other allergic rhinitis J30.89 ; Allergic rhinitis due to animal (cat) (dog) hair and dander J30.81 and Other chronic allergic conjunctivitis H10.45 [facility] [address] [place] [address] 01/30/2025 Choco Rosa Allergic rhinitis du e to pollen J30.1 ; Other allergic rhinitis J30.89 ; Allergic rhinitis due to animal (cat) (dog) hair and dander J30.81 and Other chronic allergic conjunctivitis H10.45 [facility] [address] [place] [address] 01/01/2025 Choco Rosa Allergic rhinitis du e to pollen J30.1 ; Other allergic rhinitis J30.89 ; Allergic rhinitis due to animal (cat) (dog) hair and dander J30.81 and Other chronic allergic conjunctivitis H10.45 [facility] [address] [place] [address] 12/25/2024 Choco Rosa Allergic rhinitis du e to pollen J30.1 ; Other allergic rhinitis J30.89 ; Allergic rhinitis due to animal (cat) (dog) hair and dander J30.81 and Other chronic allergic conjunctivitis H10.45 [facility] [address] [place] [address] 12/11/2024 Choco Rosa Allergic rhinitis du e to pollen J30.1 ; Other allergic rhinitis J30.89 ; Allergic rhinitis due to animal (cat) (dog) hair and dander J30.81 and Other chronic allergic conjunctivitis H10.45 [facility] [place] [address] [place] [address] 11/20/2024 Choco Rosa Allergic rhinitis du e to pollen J30.1 ; Other allergic rhinitis J30.89 ; Allergic rhinitis due to animal (cat) (dog) hair and dander J30.81 and Other chronic allergic conjunctivitis H10.45 [facility] [address] [place] [address] 09/12/2024 Choco Rosa Allergic rhinitis du e to pollen J30.1 ; Other allergic rhinitis J30.89 ; Allergic rhinitis due to animal (cat) (dog) hair and dander J30.81 and Other chronic allergic conjunctivitis H10.45 [facility] [place] [address] [place] [address] 09/02/2024 Choco Rosa Allergic rhinitis du e to pollen J30.1 ; Other allergic rhinitis J30.89 ; Allergic rhinitis due to animal (cat) (dog) hair and dander J30.81 and Other chronic allergic conjunctivitis H10.45 [facility] [place] [address] [place] [address] 08/22/2024 Choco Rosa Allergic rhinitis du e to pollen J30.1 ; Other allergic rhinitis J30.89 ; Allergic rhinitis due to animal (cat) (dog) hair and dander J30.81 and Other chronic allergic conjunctivitis H10.45 [facility] [place] [address] [place] [address] 07/18/2024 Choco Rosa Allergic rhinitis du e to pollen J30.1 ; Other allergic rhinitis J30.89 ; Allergic rhinitis due to animal (cat) (dog) hair and dander J30.81 and Other chronic allergic conjunctivitis H10.45 [facility] [address] [place] [address] 07/04/2024 Choco Rosa Allergic rhinitis du e to pollen J30.1 ; Other allergic rhinitis J30.89 ; Allergic rhinitis due to animal (cat) (dog) hair and dander J30.81 and Other chronic allergic conjunctivitis H10.45 [facility] [place] [address] [place] [address] 05/30/2024 Choco Rosa Allergic rhinitis du e to pollen J30.1 ; Other allergic rhinitis J30.89 ; Allergic rhinitis due to animal (cat) (dog) hair and dander J30.81 and Other chronic allergic conjunctivitis H10.45 [facility] [address] [place] [address] 10/30/2024 Conor Cochran Allergic rhinitis du e to animal (cat) (dog) hair and dander J30.81 ; Acute sinusitis, unspecified J01.90 ; Allergic rhinitis due to pollen J30.1 ; Other allergic rhinitis J30.89 ; Chronic cough R05.3 ; Other chronic allergic conjunctivitis H10.45 ; Chronic sinusitis, unspecified J32.9 and Gastro-esophageal reflux disease without esophagitis K21.[address] [address] 07/10/2024 Conor Cochran [facility] [address] [place] [address] 03/19/2025 Simi Carrera Allergic rhinitis du e to animal (cat) (dog) hair and dander J30.81 ; Allergic rhinitis due to pollen J30.1 ; Other allergic rhinitis J30.89 ; Chronic cough R05.3 ; Other chronic allergic conjunctivitis H10.45 ; Chronic sinusitis, unspecified J32.9 ; Gastro-esophageal reflux disease without esophagitis K21.9 and Elevated blood-pressure reading, without diagnosis of hypertension R03.[address] [place] [address] 03/25/2025 Simi Carrera [facility] [address] [place] [address] 03/20/2025 Simi Carrera [place] [address] [place] [address] 03/20/2025 Simi Carrera Chronic cough R05.[address] [place] [address] 02/05/2025 Choco Rosa [place] [address] [place] [address] 12/16/2024 Conor Cochran [facility] [address] [place] [address] 11/04/2024 Conor Cochran [facility] [address] [place] [address] 09/12/2024 Conor Cochran Assessments Encounter Date Diagnosis (ICD Code) Assessment Notes Treatment Notes Treatment Clinical Notes Section Notes 07/18/2024 Allergic rhinitis due to pollen (ICD-10 - J30.1) 03/19/2025 Allergic rhinitis due to pollen (ICD-10 - J30.1) Follow allergen avoidance, meds and continue SCIT as an adjunctive treatment to current regimen. 03/19/2025 Allergic rhinitis due to animal (cat) (dog) hair and dander (ICD-10 - J30.81) Jo clearly suffers from atopic disease based upon our skin testing and history. Reached MM in 05/2022. - Continued to have symptoms despite SCIT, was off SCIT with worsening symptoms. - Dosing tolerated today. LLR noted bilaterall. TAC applied. Patient reported she did not premedicate with Zyrtec. Took Benadryl, Pepcid and Singulair. Instructed to premedicate with 2 Zyrtec, Pepcid and SIngulair moving forward. - AIE on hand. - Consider reformulation for persistent symptoms. 03/20/2025 Chronic cough (ICD-10 - R05.3) 02/20/2025 Allergic rhinitis due to pollen (ICD-10 - J30.1) 02/13/2025 Allergic rhinitis due to pollen (ICD-10 - J30.1) 02/05/2025 Allergic rhinitis due to pollen (ICD-10 - J30.1) 01/30/2025 Allergic rhinitis due to pollen (ICD-10 - J30.1) 01/01/2025 Allergic rhinitis due to pollen (ICD-10 - J30.1) 12/25/2024 Allergic rhinitis due to pollen (ICD-10 - J30.1) 12/11/2024 Allergic rhinitis due to pollen (ICD-10 - J30.1) 11/20/2024 Allergic rhinitis due to pollen (ICD-10 - J30.1) 10/30/2024 Acute sinusitis, unspecified (ICD-10 - J01.90) 10/30/2024 Allergic rhinitis due to animal (cat) (dog) hair and dander (ICD-10 - J30.81) Jo clearly suffers from atopic disease based upon our skin testing and history. - continues to have symptoms despite SCIT, off SCIT since August with worsening symtpoms. - Currently behind on SCIT dosing. Procedure tolerated today without isuse. - continue triple premedication for SCIT - dosing received today without issues. AIE on hand - Increase dosing in peak seasons 09/12/2024 Allergic rhinitis due to pollen (ICD-10 - J30.1) 09/02/2024 Allergic rhinitis due to pollen (ICD-10 - J30.1) 08/22/2024 Allergic rhinitis due to pollen (ICD-10 - J30.1) 07/04/2024 Allergic rhinitis due to pollen (ICD-10 - J30.1) 05/30/2024 Allergic rhinitis due to pollen (ICD-10 - J30.1) 05/30/2024 Other allergic rhinitis (ICD-10 - J30.89) 07/04/2024 Other allergic rhinitis (ICD-10 - J30.89) 08/22/2024 Other allergic rhinitis (ICD-10 - J30.89) 09/02/2024 Other allergic rhinitis (ICD-10 - J30.89) 09/12/2024 Other allergic rhinitis (ICD-10 - J30.89) 10/30/2024 Allergic rhinitis due to pollen (ICD-10 - J30.1) Follow allergen avoidance, meds and continue SCIT as an adjunctive treatment to current regimen. 11/20/2024 Other allergic rhinitis (ICD-10 - J30.89) 12/11/2024 Other allergic rhinitis (ICD-10 - J30.89) 12/25/2024 Other allergic rhinitis (ICD-10 - J30.89) 01/01/2025 Other allergic rhinitis (ICD-10 - J30.89) 01/30/2025 Other allergic rhinitis (ICD-10 - J30.89) 02/05/2025 Other allergic rhinitis (ICD-10 - J30.89) 02/13/2025 Other allergic rhinitis (ICD-10 - J30.89) 02/20/2025 Other allergic rhinitis (ICD-10 - J30.89) 03/19/2025 Other allergic rhinitis (ICD-10 - J30.89) Follow allergen avoidance, meds and continue SCIT as an adjunctive treatment to current regimen. 07/18/2024 Other allergic rhinitis (ICD-10 - J30.89) 07/18/2024 Allergic rhinitis due to animal (cat) (dog) hair and dander (ICD-10 - J30.81) 03/19/2025 Chronic cough (ICD-10 - R05.3) Reports prior diagnosis of asthma in the late 90s. Previously was doing well on Breo - previously more lower airway symptoms with Arnuity. Currnently no longer covered. Switched to Symbicort and was doing well. Reporting JESSE use with illness. Symptomatic with high mold counts 2 weeks ago. Today reports no lower airway issues. ACT 18, reported lower due to sinus infection and s/p sinus surgery. - Last spirometry was normal - Today spirometry shows normal FVC, FEV1, FEV%. FVL shows variable expiratory flow. Normal lung age. - Continue Symbicort. Consider step-up to Trelegy or Breztri if ACT not improved at next visit. Refills sent out. - Continue Xopenex use per AAP. Instructed to notify office for increased JESSE use more than 2x per week. Refills sent out. - AAP reviewed. - Follow-up in 2 months for E&M 02/13/2025 Allergic rhinitis due to animal (cat) (dog) hair and dander (ICD-10 - J30.81) 02/20/2025 Allergic rhinitis due to animal (cat) (dog) hair and dander (ICD-10 - J30.81) 02/05/2025 Allergic rhinitis due to animal (cat) (dog) hair and dander (ICD-10 - J30.81) 01/30/2025 Allergic rhinitis due to animal (cat) (dog) hair and dander (ICD-10 - J30.81) 01/01/2025 Allergic rhinitis due to animal (cat) (dog) hair and dander (ICD-10 - J30.81) 12/25/2024 Allergic rhinitis due to animal (cat) (dog) hair and dander (ICD-10 - J30.81) 12/11/2024 Allergic rhinitis due to animal (cat) (dog) hair and dander (ICD-10 - J30.81) 11/20/2024 Allergic rhinitis due to animal (cat) (dog) hair and dander (ICD-10 - J30.81) 10/30/2024 Other allergic rhinitis (ICD-10 - J30.89) Follow allergen avoidance, meds and continue SCIT as an adjunctive treatment to current regimen. 09/12/2024 Allergic rhinitis due to animal (cat) (dog) hair and dander (ICD-10 - J30.81) 09/02/2024 Allergic rhinitis due to animal (cat) (dog) hair and dander (ICD-10 - J30.81) 08/22/2024 Allergic rhinitis due to animal (cat) (dog) hair and dander (ICD-10 - J30.81) 07/04/2024 Allergic rhinitis due to animal (cat) (dog) hair and dander (ICD-10 - J30.81) 05/30/2024 Allergic rhinitis due to animal (cat) (dog) hair and dander (ICD-10 - J30.81) 05/30/2024 Other chronic allergic conjunctivitis (ICD-10 - H10.45) 07/04/2024 Other chronic allergic conjunctivitis (ICD-10 - H10.45) 08/22/2024 Other chronic allergic conjunctivitis (ICD-10 - H10.45) 09/02/2024 Other chronic allergic conjunctivitis (ICD-10 - H10.45) 09/12/2024 Other chronic allergic conjunctivitis (ICD-10 - H10.45) 10/30/2024 Chronic cough (ICD-10 - R05.3) Reports prior diagnosis of asthma in the late 90s. - was doing well on Breo - previously more lower airway symptoms with Arnuity. Currnently no longer coverd. - last spirometry was normal - Continue Xopenex use per AAP - Continues Symbicort and remains back to baseline. Last spiromtery was essentially normal, Plan to continue use. 11/20/2024 Other chronic allergic conjunctivitis (ICD-10 - H10.45) 12/11/2024 Other chronic allergic conjunctivitis (ICD-10 - H10.45) 12/25/2024 Other chronic allergic conjunctivitis (ICD-10 - H10.45) 01/01/2025 Other chronic allergic conjunctivitis (ICD-10 - H10.45) 01/30/2025 Other chronic allergic conjunctivitis (ICD-10 - H10.45) 02/05/2025 Other chronic allergic conjunctivitis (ICD-10 - H10.45) 02/20/2025 Other chronic allergic conjunctivitis (ICD-10 - H10.45) 02/13/2025 Other chronic allergic conjunctivitis (ICD-10 - H10.45) 03/19/2025 Other chronic allergic conjunctivitis (ICD-10 - H10.45) Given ocular signs and symptoms, I encouraged allergy avoidance measures and meds as above. If symptoms persist, consider adding additional medications including intraocular antihistamine/mas t cell stabilizer, PRN and continue SCIT as an adjunctive measure. 07/18/2024 Other chronic allergic conjunctivitis (ICD-10 - H10.45) 03/19/2025 Chronic sinusitis, unspecified (ICD-10 - J32.9) Chronic sinus infections with numerous amounts of abx and steroids - S/p deviated septal repair and turbinectomy with Dr. Shore in 07/2020. Treated with multiple doses of abx in the past year. Now s/p ballon sinuplasty, septoplasty and turbinate reduction with Dr. Broussard in 01/2025. - Modified PIDD workup sent at prior visit, with inadequate protection to S. pneumo. She has since obtained a booster in 03/2024. Titers not rechecked until 10/2024, showing increase from to 07/06. - Received [id number] in 02/2021, Prevnar 20 in 01/2023 and 03/2024. - Due to concerns for SADNI, will obtain repeat s. pneumo titers now. Recommend [id number] based off results. Will plan on repeating Modified PIDD workup with repeat titers. Patient verbalized understanding. 10/30/2024 Other chronic allergic conjunctivitis (ICD-10 - H10.45) Given ocular signs and symptoms, I encouraged allergy avoidance measures and meds as above. If symptoms persist, consider adding additional medications including intraocular antihistamine/mas t cell stabilizer, PRN and continue SCIT as an adjunctive measure. 10/30/2024 Chronic sinusitis, unspecified (ICD-10 - J32.9) Chronic sinus infections with numerous amounts of abx and steroids - S/p deviated septal repair and turbinectomy with Dr. Shore in 07/2020. Treated with multiple doses of abx in the past year - Modified PIDD workup sent at prior visit, with inadequeat protection to S. pneumo. She has since obtained a booster. WIll resend titer today. - set to undergo sinus surgery with ENT 03/19/2025 Gastro-esophageal reflux disease without esophagitis (ICD-10 - K21.9) History of GERD, recently not controlled with Pepcid - Discussed reduction of caffeine - Consider GI evaluaiton if not controlled on Nexium + Pepcid 03/19/2025 Elevated blood-pressure reading, without diagnosis of hypertension (ICD-10 - R03.0) BP elevated today without symptoms of urgency or emergency. Continue serial checks and follow-up with PCP 10/30/2024 Gastro-esophageal reflux disease without esophagitis (ICD-10 - K21.9) History of GERD, recently not controlled with Pepcid - Discussed reduction of caffeine - Consider GI evaluaiton if not controlled on Nexium + Pepcid 10/30/2024 Other 03/19/2025 Other Plan Of Treatment Pending Test Test Name Order Date STREPTOCOCCUS PNEUMONIAE IGG AB (23 SERO TYPES) 03/30/2021 STREPTOCOCCUS PNEUMONIAE IGG AB (23 SERO TYPES) 10/30/2024 STREPTOCOCCUS PNEUMONIAE IGG AB (23 SERO TYPES) 03/19/2025 TETANUS ANTITOXOID ANTIBODY (EIA) 2020 TETANUS ANTITOXOID ANTIBODY (EIA) 2023 DIPHTHERIA ANTITOXOID ANTIBODY DIPHTHERIA ANTITOXOID ANTIBODY 4 IMMUNOGLOBULINS G/A/M 03/30/2021 HAEMOPHILUS INFLUENZAE B ANTIBODY, IGG 0 02/28/2024 HAEMOPHILUS INFLUENZAE B ANTIBODY, IGG 0 03/30/2021 CARDIO IQ(R) VITAMIN D, 25 HYDROXY 03/30 S. PNEUMONIAE IGG AB, 23 SEROTYPES, S Next Appt Details Provider Name:Choco Rosa , 04/24/2025 04:50:00 PM, [address] [place] [address], [phone], Provider Name:Simi garza, 05/29/2025 10:30:00 AM, [address] [facility], [address], [place], [address], Insurance Providers Payer Name Payer Address Payer Phone Subscriber Number Group Number Insured Name Patient Relationship to Insured Coverage Start Date Coverage End Date YAZMIN BEAR (Julia ) [address] [place] [id number] Jo Avila Self - patient is the insured 2023 Medical (General) History Medical History History ICD Code Anxiety disorder, unspecified F41.9 Depressive disorder NOS 296.00 Other specified disorders of thyroid E07 .89 Surgical History Surgery Date(Month/Year) sinus surgery Hospitalization History Reason Date(Month/Year) See Above
--- OUTSIDE RECORDS SUMMARY | 2025-04-12 11:21 | XMS_ITS | Encounter Summary ---
Author Organization [employer] [facility] Address [address] [place] [address] Care Team Providers Care Product Transfer Pumper Name Role Phone Noel Perez MD Primary Care Provider Encounter Details Date Type Department Care Team (Late st Contact Info) Description 04/27/2024 [facility] [place] [address] [address] Nicolás Cortes PA [address] [place] [address] Social History Tobacco Use Types Packs/Day Years Used Date Smoking Tobacco: Never Smokeless Tobacco: Never Alcohol Use Standard Drinks/Week Comments No 0 (1 standard drink = 0.6 oz pur e alcohol) Comments No Sex and Gender Information Value Date Recorded Sex Assigned at Not on file Legal Sex Female 5:16 AM MICA PLATE LAYER HAND Gender Identity Not on file Sexual Orientation Not on file Occupation Industry Job Start Date Job End Date Not on file Not on file Not on file Not on file documented as of this encounter Plan of Treatment Not on file documented as of this encounter Visit Diagnoses Not on filedocumented in this encounter Care Teams Product Transfer Pumper Relationship Specialty Start Date End Date Noel Perez MD [facility] [address] [place] [address] PCP - General Internal Medicine 06/06/12 documented as of this encounter
--- OUTSIDE RECORDS SUMMARY | 2025-04-12 11:21 | XMS_ITS | Clinical Summary ---
Author Organization [facility] [address] Address [address] [place] [address] Care Team Providers Care Industrial Roofer Name Role Phone Boo Saenz MD Primary Care Provider [phone] Allergies No known active allergies Medications buPROPion XL (WELLBUTRIN XL) 150 mg 24 hr tablet Take 1 tablet (150 mg total) by mouth daily 11/09/2023 Active Apri 0.15-0.03 mg per tablet Take 1 tablet by mouth daily 12/05/2023 Active ergocalciferol (VITAMIN D) 50,000 unit capsule Take 1 capsule (50,000 Units total) by mouth once a week 12/04/2023 Active Active Problems No known active problems Social History Tobacco Use Types Packs/Day Years Used Date Smoking Tobacco: Never Assessed Comments Unknown Sex and Gender Information Value Date Recorded Sex Assigned at Not on file Legal Sex Female 9:33 AM CDT Gender Identity Not on file Sexual Orientation Not on file Obstetrics History Last Filed Vital Signs Vital Sign Reading Time Taken Comments Blood Pressure 143/91 12/30/2023 11:58 AM CDT Pulse 75 12/30/2023 11:58 AM CDT Temperature 36.7 C (98.1 F) 12/30/2023 11:58 AM CDT Respiratory Rate 20 12/30/2023 11:58 AM CDT Oxygen Saturation 99% 12/30/2023 11:58 AM CDT Inhaled Oxygen Concentration - - Weight 68 kg (150 lb) 12/30/2023 11:58 AM CDT Height 157.5 cm (5' 2) 12/30/2023 11:58 AM CDT Body Mass Index 27.44 12/30/2023 11:58 AM CDT Plan of Treatment Health Maintenance Due Date Last Done Comments Cervical Cancer Screening 1974 Colon Cancer Screening-Colonoscopy 1974 Depression Screening 1974 Hepatitis C Screening 1974 Regular Well Visit/Exam 18-64 1992 Pneumococcal vaccine <65 (2 of 2 - PCV) 03/08/2022 03/08/2021 Covid-19 Vaccine (4 - 2023-2 5 season) 2024 08/12/2021, 10/16/2020, 09/18/2020 Zoster Vaccine (1 of 2) 2024 Influenza Vaccine (#1) 2025 , 05/25/2023, 10/17/2022, Additional history exists Breast Cancer Screening-Mammogram 10/28/2025 10/28/2024, 09/13/2022, 09/13/2022 DTaP/Tdap/Td Vaccine (3 - Td or Tdap) 08/19/2033 08/19/2023, 05/09/2014 Hepatitis B Screening Completed 03/15/2024 , 07/24/2017, 03/20/2017, Additional history exists Insurance [facility] CHOICE PLUS [facility] HMO/PPO Address: [facility] [address] [place] [address] [facility]ICE ANTHEM ACCESS CHOICE Care Teams Industrial Roofer Relationship Specialty Start Date End Date Boo Saenz MD [address] [place] [address] PCP - General Gastroenterology 02/21/25
--- OUTSIDE RECORDS SUMMARY | 2025-04-12 11:21 | XMS_ITS | Encounter Summary ---
Author Organization [facility] Address [address] [place] [address] Care Team Providers Care Phone Banker Name Role Phone Noel Perez MD Primary Care Provider [phone] Encounter Details Date Type Department Care Team (Late st Contact Info) Description 05/04/2004 Outpatient Historical [facility] Maternal and Ground Floor [address] [place] [address] Wm Dotson MD [address] [facility] [address] [place] [address] Social History Tobacco Use Types Packs/Day Years Used Date Smoking Tobacco: Never Assessed Comments Unknown Sex and Gender Information Value Date Recorded Sex Assigned at Not on file Legal Sex Female 5:16 AM DOCTOR PODIATRIC MEDICINE Gender Identity Not on file Sexual Orientation Not on file documented as of this encounter Plan of Treatment Not on file documented as of this encounter Visit Diagnoses Not on filedocumented in this encounter Care Teams Phone Banker Relationship Specialty Start Date End Date Noel Perez MD [facility] [address] [place] [address] PCP - General Internal Medicine 06/06/12 documented as of this encounter
--- OUTSIDE RECORDS SUMMARY | 2025-04-12 11:21 | XMS_ITS | Encounter Summary ---
Author Organization [facility] Address [address] [place] [address] Care Team Providers Care Corn Husker Name Role Phone Noel Perez MD Primary Care Provider [phone] Encounter Details Date Type Department Care Team (Late st Contact Info) Description 08/12/1999 Outpatient Historical [facility] Eric Haddad, DO [address] [place] [address] Social History Tobacco Use Types Packs/Day Years Used Date Smoking Tobacco: Never Assessed Comments Unknown Sex and Gender Information Value Date Recorded Sex Assigned at Not on file Legal Sex Female 5:16 AM HUMAN RESOURCES OPERATIONS COORDINATOR Gender Identity Not on file Sexual Orientation Not on file documented as of this encounter Plan of Treatment Not on file documented as of this encounter Visit Diagnoses Not on filedocumented in this encounter Care Teams Corn Husker Relationship Specialty Start Date End Date Noel Perez MD [address] [place] [address] [address] [place] [phone] PCP - General Internal Medicine 06/06/12 documented as of this encounter
--- OUTSIDE RECORDS SUMMARY | 2025-04-12 11:21 | XMS_ITS | Encounter Summary ---
Author Organization [facility] Address [address] [place] [address] Care Team Providers Care Signal Tower Director Name Role Phone Noel Perez MD Primary Care Provider [phone] Encounter Details Date Type Department Care Team (Latest Contact Info) Description 08/04/2004 Inpatient Historical [facility] PATIENT IN A BED Karis Valdez MD [address] [place] [address] Radha Rob MD [address] [facility] [address] [place] [address] MILD/NOS PREECLAMP-DELIVERED (Primary Dx) Social History Tobacco Use Types Packs/Day Years Used Date Smoking Tobacco: Never Assessed Comments Unknown Sex and Gender Information Value Date Recorded Sex Assigned at Not on file Legal Sex Female 5:16 AM COLD STRIP ROLLER Gender Identity Not on file Sexual Orientation Not on file documented as of this encounter Plan of Treatment Not on file documented as of this encounter Visit Diagnoses Diagnosis Mild or unspecified pre-eclampsia, with delivery- Primary documented in this encounter Care Teams Signal Tower Director Relationship Specialty Start Date End Date Noel Perez MD [facility] [address] [place] [address] PCP - General Internal Medicine 06/06/12 documented as of this encounter
--- OUTSIDE RECORDS SUMMARY | 2025-04-12 11:21 | XMS_ITS | Encounter Summary ---
Author Organization [facility] Address [address] [facility] [address] [place] [address] Care Team Providers Care Shoe Repairer Apprentice Name Role Phone Noel Perez MD Primary Care Provider [phone] Encounter Details Date Type Department Care Team (Late st Contact Info) Description 03/24/2025 Results Follow-Up [facility] [id number] [place] [address] Janae Lui, [facility] [address] [place] [address] VAGINOSIS/VAGINITIS PANEL PLUS, POC URINALYSIS DIPSTICK AUTOMATED, POC , URINE, URINE CULTURE Social History Tobacco Use Types Packs/Day Years Used Date Smoking Tobacco: Never Smokeless Tobacco: Never Alcohol Use Standard Drinks/Week Comments No 0 (1 standard drink = 0.6 oz pur e alcohol) Comments No Sex and Gender Information Value Date Recorded Sex Assigned at Not on file Legal Sex Female 5:16 AM PEAT SHREDDER TENDER Gender Identity Not on file Sexual Orientation Not on file Occupation Industry Job Start Date Job End Date Not on file Not on file Not on file Not on file documented as of this encounter Plan of Treatment Not on file documented as of this encounter Visit Diagnoses Not on filedocumented in this encounter Care Teams Shoe Repairer Apprentice Relationship Specialty Start Date End Date Noel Perez MD [facility] [address] [place] [address] PCP - General Internal Medicine 06/06/12 documented as of this encounter
--- OUTSIDE RECORDS SUMMARY | 2025-04-12 11:21 | XMS_ITS | Encounter Summary ---
Author Organization [facility] Address [address] [place] [address] Care Team Providers Care Manager Rehab Name Role Phone Noel Perez MD Primary Care Provider [phone] Encounter Details Date Type Department Care Team (Late st Contact Info) Description 10/22/1999 Outpatient Historical [facility] Eric Haddad, DO [address] [place] [address] Social History Tobacco Use Types Packs/Day Years Used Date Smoking Tobacco: Never Assessed Comments Unknown Sex and Gender Information Value Date Recorded Sex Assigned at Not on file Legal Sex Female 5:16 AM PRINCIPAL CLERK Gender Identity Not on file Sexual Orientation Not on file documented as of this encounter Plan of Treatment Not on file documented as of this encounter Visit Diagnoses Not on filedocumented in this encounter Care Teams Manager Rehab Relationship Specialty Start Date End Date Noel Perez MD [address] [place] [address] [address] [place] [phone] PCP - General Internal Medicine 06/06/12 documented as of this encounter
--- OUTSIDE RECORDS SUMMARY | 2025-04-12 11:21 | XMS_ITS | Encounter Summary ---
Author Organization [facility] Address [address] [place] [address] Care Team Providers Care Insulation Worker Interior Surface Name Role Phone Marina Mcneill GOOD-VOTING MACHINE MECHANIC Primary Care Provider Sinai Mcgregor MD Primary Care Provider [phone] Encounter Details Date Type Department Care Team (Late Contact Info) Description 02/09/2024 Lab Requisition [facility] - DermPath Lab [address] [place] [address] Sanjeev Early MD [facility] DER[facility]OLOGY [address] [place] [address] Neoplasm of uncertain behavior of skin Social History Tobacco Use Types Packs/Day Years Used Date Smoking Tobacco: Never Assessed Comments Unknown Sex and Gender Information Value Date Recorded Sex Assigned at Not on file Legal Sex Female 4:27 AM STRATEGIC PLANNER Gender Identity Not on file Sexual Orientation Not on file documented as of this encounter Plan of Treatment Upcoming Encounters Date Type Department Care Team (Late Contact Info) Description 09/29/2025 2:00 PM STRATEGIC PLANNER Office Visit [facility] - ORE DRESSING ENGINEER [address] [facility] [address] [place] [address] Charissa Nielsen APRN-VOTING MACHINE MECHANIC [address] [address] documented as of this encounter Procedures Procedure Name Priority Date/Time Associated Diagnosis Comments DERMATOPATHOLOGY Routine 02/09/2024 12:0 0 AM CDT Neoplasm of uncertain behavior of skin documented in this encounter Results * DERMATOPATHOLOGY (02/09/2024 12:00 AM CDT) Case Report Dermatopathology Report Case: [id number] Authorizing Provider: Sanjeev Early MD Collected: 02/09/2024 12:00 AM Ordering Location: [facility] - Received: 02/12/2024 01:17 PM DermPath Lab Pathologist: Silvia Tran MD Specimen: Skin, right medial superior chest 1:03 PM CDT DERMATOPATHOLOGY LABORATORY Final Diagnosis Specimen A. SKIN, right medial superior chest: LICHEN PLANUS-LIKE KERATOSIS (BENIGN LICHENOID KERATOSIS) (L82.1) 1:03 PM CDT DERMATOPATHOLOGY LABORATORY at 1303 CDT Clinical History Neoplasm of uncertain behavior vs BCC 1:03 PM CDT DERMATOPATHOLOGY LABORATORY Gross Description Specimen A: Received is one formalin filled container labeled with the patient's name and designated right medial superior chest. The specimen consists of a shave biopsy measuring 5x5x1 mm. Jar 0. 1:03 PM CDT DERMATOPATHOLOGY LABORATORY Microscopic Description Specimen A. SKIN, right medial superior chest: The epidermis is mildly acanthotic. There is a lichenoid infiltrate with vacuolar changes of basilar keratinocytes and scattered necrotic keratinocytes. 1:03 PM CDT DERMATOPATHOLOGY LABORATORY Disclaimer An external and internal positive and negative controls are appropriate for the histochemical, immunohistochemical and immunofluorescence stain(s) in this case (if any), except where stated explicitly. The performance characteristics of the stain(s) cited in this report were developed and its performance characteristic determined by the Dermatopathology Laboratory at [facility], directed by Dr. Cedric Gutierrez. These tests need not be, and therefore are not, approved by the [place] Food and Drug Administration. The tests are used for clinical purposes. Billing Codes Specimen Charges Stain Charges 52651 1 1:03 PM CDT DERMATOPATHOLOGY LABORATORY Embedded Images 07/03/202 4 1:03 PM CDT DERMATOPATHOLOGY LABORATORY Pathology/Cytolog y TISSUE SPECIMEN FROM SKIN / Unknown 02/09/2024 02/12/2024 1:17 PM CDT us Sanjeev Early MD LAB - PATHOLOGY/CYTOLOGY [facility] Final Result DERMATOPATHOLOGY LABORATORY [facility] - Department of Dermatology [address], [address] [phone] documented in this encounter Visit Diagnoses Diagnosis Neoplasm of uncertain behavior of skin documented in this encounter Care Teams Insulation Worker Interior Surface Relationship Specialty Start Date End Date Marina Mcneill APRN-PALMA [address] [place] [address] PCP - General Nurse Practitioner Family 04/11/2303/19 Sinai Mcgregor MD [address] [place] [address] PCP - General Internal Medicine 03/20/25 documented as of this encounter
--- OUTSIDE RECORDS SUMMARY | 2025-04-12 11:21 | XMS_ITS | Encounter Summary ---
Author Organization [facility] Address [address] [place] [address] Care Team Providers Care Kaitara Taraka Name Role Phone Noel Perez MD Primary Care Provider [phone] Encounter Details Date Type Department Care Team (Late st Contact Info) Description 12/06/1999 Outpatient Historical [facility] Eric Haddad, DO [address] [place] [address] Social History Tobacco Use Types Packs/Day Years Used Date Smoking Tobacco: Never Assessed Comments Unknown Sex and Gender Information Value Date Recorded Sex Assigned at Not on file Legal Sex Female 5:16 AM RECORDS MANAGEMENT ANALYST Gender Identity Not on file Sexual Orientation Not on file documented as of this encounter Plan of Treatment Not on file documented as of this encounter Visit Diagnoses Not on filedocumented in this encounter Care Teams Kaitara Taraka Relationship Specialty Start Date End Date Noel Perez MD [address] [place] [address] [address] [place] [phone] PCP - General Internal Medicine 06/06/12 documented as of this encounter
--- OUTSIDE RECORDS SUMMARY | 2025-04-12 11:21 | XMS_ITS | Encounter Summary ---
Author Organization [facility] Address [address] [place] [address] Care Team Providers Care Physiologist Name Role Phone Noel Perez MD Primary Care Provider [phone] Encounter Details Date Type Department Care Team (Late st Contact Info) Description 06/01/2000 Outpatient Historical [facility] Eric Haddad, DO [address] [place] [address] Social History Tobacco Use Types Packs/Day Years Used Date Smoking Tobacco: Never Assessed Comments Unknown Sex and Gender Information Value Date Recorded Sex Assigned at Not on file Legal Sex Female 5:16 AM VARSITY BASEBALL COACH Gender Identity Not on file Sexual Orientation Not on file documented as of this encounter Plan of Treatment Not on file documented as of this encounter Visit Diagnoses Not on filedocumented in this encounter Care Teams Physiologist Relationship Specialty Start Date End Date Noel Perez MD [address] [place] [address] [address] [place] [phone] PCP - General Internal Medicine 06/06/12 documented as of this encounter
[2025-04-12 11:25] VITALS: BP 129/84; PULSE 103; RESP 18; TEMP 37.2; O2SAT 100
--- NOTE | 2025-04-12 12:02 | ED.URI ---
HPI - URI/Sore Throat General Chief Complaint: Upper Respiratory Infection Stated Complaint: sore throat/diarrhea Source: patient Mode of arrival: ambulatory Limitations: no limitations History of Present Illness HPI Narrative: 49-year-old female presents to [facility] with complaints of 2 day history of fatigue, postnasal drip, sore throat, bilateral ear pressure, nausea, diarrhea and intermittent dizziness. Patient has been taking throat lozenges and Tylenol with little relief. Patient does take Zyrtec daily. Patient is a nonsmoker. Patient denies sick contacts but does report working at a local school. Patient denies recent travel MD elicited complaint: sore throat Onset (ago): day(s) (2) Able to tolerate fluids by mouth: Yes Treatments prior to arrival: acetaminophen Related Data Home Medications ?Medication ?Instructions ?Recorded ?Confirmed ?Last Taken ?Type alprazolam 0.5 mg tablet mg 04/12/25 Unknown History baclofen 10 mg tablet mg 04/12/25 Unknown History bempedoic acid 180 mg tablet mg 04/12/25 Unknown History (Nexletol) budesonide-formoterol HFA 80 inhalation 04/12/25 Unknown History mcg-4.5 mcg/actuation aerosol inhaler bupropion HCl 150 mg 24 hr tablet, mg PO 04/12/25 Unknown History extended release docusate sodium 100 mg capsule mg PO 04/12/25 Unknown History ergocalciferol (vitamin D2) 1,250 04/12/25 Unknown History mcg (50,000 unit) capsule famotidine 40 mg tablet mg 04/12/25 Unknown History fluticasone propionate 50 intranasal 04/12/25 Unknown History mcg/actuation nasal spray,suspension fluticasone propionate 93 intranasal 04/12/25 Unknown History mcg/actuation breath activated aerosol (Xhance) levothyroxine 50 mcg tablet mcg 04/12/25 Unknown History lisinopril 5 mg tablet mg 04/12/25 Unknown History meclizine 12.5 mg tablet mg 04/12/25 Unknown History montelukast 10 mg tablet mg 04/12/25 Unknown History ondansetron HCl 4 mg tablet mg 04/12/25 Unknown History solifenacin 5 mg tablet mg PO 04/12/25 Unknown History Allergies Allergy/AdvReac Type Severity Reaction Status Date / Time Sulfa (Sulfonamide Allergy Mild Rash Verified 04/12/25 11:27 Antibiotics) egg AdvReac Mild Diarrhea Verified 04/12/25 11:27 [id number] Reductase AdvReac Mild Muscle Pain Verified 04/12/25 12:21 Inhibitor Review of Systems Constitutional: Constitutional: Reports chills, Reports fatigue, Denies fever(s) and Denies weakness ENT: Denies dysphagia, Denies vertigo, Denies dizziness, Denies epistaxis, Reports nasal congestion and Reports sore throat Respiratory: Respiratory: Reports cough, Denies dyspnea and Denies wheezing Gastrointestinal: Gastrointestinal: Denies bloating, Denies constipation, Reports diarrhea, Reports nausea and Denies vomiting Musculoskeletal: Musculoskeletal: Denies arthralgias and Denies joint swelling Integumentary/Breasts: Skin/Breast: Denies rash Neurologic: Denies dizziness, Denies syncope and Denies headache(s) PMFSH Comments At time of signature, I agree with nursing past medical, surgical, social and family history. There is no relevant family history pertinent to the presenting complaint. Exam Const: General: healthy appearing and no acute distress Nutritional Appearance: well nourished Orientation/consciousness: patient oriented x3 Limitations: no limitations HENMT: Head: normal to inspection Ears: external ears normal, TM's normal bilaterally and EAC's normal Mouth: Yes Normal oral and palatal mucosa present, Yes lip normal and Yes moist mucous membranes Throat: posterior oropharynx normal and uvula midline Eyes: Conjunctivae: conjunctivae normal Neck: Neck: normal visual inspection Resp: Effort & Inspection: normal respiratory effort and not labored Auscultation: clear to auscultation bilaterally, no crackles, no rales, no rhonchi and no wheezes Cardio: Rate: regular rate Rhythm: regular rhythm Heart sounds: no murmurs GI: Inspection: non-distended GI Palp: Yes Soft to palpation, No Tenderness to palpation present (GI), No Guarding due to palpation present (GI) and No Rigid due to palpation Skin: General skin exam: normal color Rashes: no rashes Wounds: no wounds Neuro: General: patient oriented x3 and moves all extremities Psych: Affect: normal affect Attitude: cooperative Course Course Level of Care: Express Care Visit Vital Signs Vital signs: Vital Signs Temperature 37.2 C 04/12/25 11:25 Pulse Rate 103 H 04/12/25 11:25 Respiratory Rate 18 04/12/25 11:25 Blood Pressure 129/84 04/12/25 11:25 Pulse Oximetry 100 04/12/25 11:25 Oxygen Delivery Room Air 04/12/25 11:25 Temperature 37.2 C 04/12/25 11:25 Pulse Rate 103 H 04/12/25 11:25 Respiratory Rate 18 04/12/25 11:25 Blood Pressure 129/84 04/12/25 11:25 Pulse Oximetry 100 04/12/25 11:25 Oxygen Delivery Room Air 04/12/25 11:25 MDM - URI/Sore Throat MDM Narrative Medical decision making narrative: Discussed negative lab results with patient. Educated patient that symptoms are likely viral at this time and supportive care is recommended. Patient agrees to take Zofran as needed for nausea and Tessalon as needed for cough. Encouraged patient to continue Zyrtec daily. Differential Diagnosis Differential diagnosis: Likely upper respiratory infection, otitis media and sinusitis Critical Care Time Critical Care Time Critical Care Time: No Discharge Plan Discharge Clinical Impression: Viral infection Patient Disposition: Home Condition: Stable Instructions: Viral Syndrome (ED) Additional Instructions: Rest increase fluids Continue Zyrtec daily Take Zofran as needed for nausea Take Tessalon as needed for cough Follow-up with primary care provider if symptoms not improved Proceed to the emergency room if symptoms worsen Patient Language: Palestinian Prescriptions: New ondansetron 4 mg tablet,disintegrating 4 mg PO Q6H PRN (Reason: nausea and vomiting) Qty: 20 0RF benzonatate 100 mg capsule 100 mg PO BID PRN (Reason: cough) Qty: 20 0RF No Action ondansetron HCl 4 mg tablet famotidine 40 mg tablet meclizine 12.5 mg tablet alprazolam 0.5 mg tablet baclofen 10 mg tablet levothyroxine 50 mcg tablet docusate sodium 100 mg capsule PO montelukast 10 mg tablet lisinopril 5 mg tablet ergocalciferol (vitamin D2) 1,250 mcg (50,000 unit) capsule fluticasone propionate 50 mcg/actuation spray,suspension INTRANASAL bupropion HCl 150 mg tablet extended release 24 hr PO solifenacin 5 mg tablet PO budesonide-formoterol 80-4.5 mcg/actuation HFA aerosol inhaler INHALATION Xhance 93 mcg/actuation aerosol breath activated INTRANASAL Nexletol 180 mg tablet Follow-up/Referrals: Balbir,MD [facility] [Primary Care Provider] Time of Disposition: 12:09
[2025-04-12 12:22] LABS: EDCOVIDSCREEN Negative (Negative); EDINFLUASCREEN Negative (Negative); EDINFLUBSCREEN Negative (Negative); EDSTREPNEGPOS1 Negative (Negative)
== END 2025-04-12 12:13 | disposition home or self-care (01) ==
PROVIDERS: Emergency Provider Nurse Practitioner Family; PCP Internal Medicine
DX: B34.9 Viral infection, unspecified (principal); Z20.822 Contact with and (suspected) exposure to COVID-19; I10 Essential (primary) hypertension; E03.9 Hypothyroidism, unspecified; F41.9 Anxiety disorder, unspecified; F32.A Depression, unspecified
CPT/HCPCS: 87081; 87426; 87804; 87880; 99213; G0463